=== PATIENT | male | born 1945 | race Hispanic/Latino ===

== ENCOUNTER 2016-12-26 12:09 | Observation (INO) | payer MEDICARE, BC ==
[2016-12-26 12:22] VITALS: BMI 42.5
--- NOTE | 2016-12-26 12:54 | ED PDOC ---
Arrival/HPI - General Chief Complaint: Chest Pain Time Seen by Provider: 12/26/16 12:19 Historian: Patient - History of Present Illness Narrative History of Present Illness (Text): 12/26/16 12:25 A 71 year old male, whose past medical history includes Atrial fibrillation (on Coumadin) and hypertension, presents to the emergency department complaining of chest pain. Patient reports he was at work prior to arrival, when he started to feel dizzy and nausea. Dizziness was followed by chest pressure which radiated down the left arm. Patient took 2 baby aspirin and call EMS. Patient then took a regular aspirin. Once EMS arrival they have him Nitroglycerin. Patient states currently he no longer has chest pain or dizziness. Patient denies any weakness , numbness, vision changes, change in speech or any other complaints at this time. PMD: Dr. Alexandre Computer Science Intern: Dr. Nicholas Time/Duration: Prior to Arrival Symptom Onset: Sudden Symptom Course: Resolved Quality: Pressure Activities at Onset: Rest Modifying Factors (Text): resolution of symptoms after medication Context: Work Past Medical History - Provider Review Nursing Documentation Reviewed: Yes - Tetanus Immunization Tetanus Immunization: Unknown - Cardiac Hx Cardiac Disorders: Yes Hx Cardiac Arrhythmia: Yes (Afib) Hx Hypertension: Yes - Pulmonary Hx Respiratory Disorders: No - Neurological Hx Neurological Disorder: No - HEENT Hx HEENT Disorder: No - Renal Hx Renal Disorder: No - Endocrine/Metabolic Hx Endocrine Disorders: No - Hematological/Oncological Hx Blood Disorders: No - Integumentary Hx Dermatological Disorder: No - Musculoskeletal/Rheumatological Hx Musculoskeletal Disorders: No - Gastrointestinal Hx Gastrointestinal Disorders: No - Genitourinary/Gynecological Hx Genitourinary Disorders: No - Psychiatric Hx Psychophysiologic Disorder: No Hx Depression: No Hx Emotional Abuse: No Hx Physical Abuse: No Hx Substance Use: No - Surgical History Hx Appendectomy: Yes (?) - Suicidal Assessment Feels Threatened In Home Enviroment: No Family/Social History - Physician Review Nursing Documentation Reviewed: Yes Family/Social History: Unknown Family HX Smoking Status: Never Smoked Hx Alcohol Use: No Hx Substance Use: No Hx Substance Use Treatment: No Allergies/Home Meds Allergies/Adverse Reactions: Allergies No Known Allergies Allergy (Verified 12/26/16 12:20) Home Medications: Home Meds Medication Instructions Recorded Confirmed Atenolol [Tenormin] 200 mg PO DAILY 03/19/13 12/26/16 Tamsulosin [Flomax] 0.4 mg PO DAILY 12/28/14 12/26/16 Allopurinol [Zyloprim] 100 mg PO DAILY 12/26/16 12/26/16 Aspirin [Aspirin Chewable] 81 mg PO DAILY 12/26/16 12/26/16 Fosinopril Sodium [Fosinopril 10 mg PO DAILY 12/26/16 12/26/16 Sodium] Gemfibrozil [Lopid] 600 mg PO DAILY 12/26/16 12/26/16 Naproxen [Naprosyn] 1 tab PO PRN PRN 12/26/16 12/26/16 Nizatidine [Nizatidine] 150 mg PO DAILY 12/26/16 12/26/16 Potassium Chloride [K-Dur 20 mEq 20 meq PO DAILY 12/26/16 12/26/16 ER Tab] Triamterene [Dyrenium] 25 mg PO DAILY 12/26/16 12/26/16 Warfarin [Coumadin] 4 mg PO DAILY 12/26/16 12/26/16 Review of Systems - Physician Review All systems were reviewed & negative as marked: Yes - Review of Systems Constitutional: absent: Fevers Eyes: absent: Vision Changes Respiratory: absent: SOB Cardiovascular: Chest Pain Gastrointestinal: Nausea Neurological: Dizziness. absent: Focal Weakness, Speech Changes Physical Exam Vital Signs Reviewed: Yes Vital Signs Temp Pulse Resp BP Pulse Ox 12/26/16 14:02 85 18 118/62 100 12/26/16 13:56 69 18 126/79 100 12/26/16 12:21 98.0 F 76 18 128/89 100 Temperature: Afebrile Blood Pressure: Normal Pulse: Irregular Respiratory Rate: Normal Appearance: Positive for: Well-Appearing, Non-Toxic, Comfortable Pain Distress: None Mental Status: Positive for: Alert and Oriented X 3 Finger Stick Blood Glucose: 99 - Systems Exam Head: Present: Atraumatic, Normocephalic Pupils: Present: PERRL Extroacular Muscles: Present: EOMI Conjunctiva: Present: Normal Mouth: Present: Moist Mucous Membranes Neck: Present: Normal Range of Motion Respiratory/Chest: Present: Clear to Auscultation, Good Air Exchange. No: Respiratory Distress, Accessory Muscle Use Cardiovascular: Present: Normal S1, S2, Irregular Rhythm. No: Murmurs Abdomen: Present: Normal Bowel Sounds. No: Tenderness, Distention, Peritoneal Signs Back: Present: Normal Inspection Upper Extremity: Present: Normal Inspection. No: Cyanosis, Edema Lower Extremity: Present: Normal Inspection. No: Edema Neurological: Present: GCS=15, CN II-XII Intact, Speech Normal, Motor Func Grossly Intact, Normal Sensory Function, Normal Cerebellar Funct, Gait Normal, Memory Normal, Normal 2Pt Descrimination Skin: Present: Warm, Dry, Normal Color. No: Rashes Psychiatric: Present: Alert, Oriented x 3, Normal Insight, Normal Concentration Medical Decision Making ED Course and Treatment: 12/26/16 12:25 Impression: A 71 year old male with chest pressure, dizziness and nausea. Differential Diagnosis include but are not limited to: Chest pain r/o ACS; Dizziness r/o intracranial abnormalities Plan: -- EKG -- Head CT -- Chest X-ray -- Labs -- Urinalysis -- Reassess and disposition Prior Visits: Notes and results from previous visits were reviewed. The patient last presented to the emergency department on 12/28/14 for evaluation after a mechanical fall. - Lab Interpretations Lab Results: 12/26/16 12:50 12/26/16 12:50 Lab Results 12/26/16 12:50: WBC 9.4 D, RBC 4.90, Hgb 15.1, Hct 43.6, MCV 89.0, MCH 30.8, MCHC 34.6, RDW 15.7 H, Plt Count 182, MPV 10.1, Gran % 69.5 H, Lymph % (Auto) 14.7 L, [place] % (Auto) 11.8 H, Eos % (Auto) 3.6, Baso % (Auto) 0.4, Gran # 6.52 H , Lymph # 1.4, [place] # 1.1 H, Eos # 0.3, Baso # 0.04, PT 38.7 H*, INR 3.58 H*, APTT 55.2 H, Sodium 142, Potassium 3.9, Chloride 103, Carbon Dioxide 24, Anion Gap 19, BUN 26 H, Creatinine 1.4, Est GFR ( Amer) > 60, Est GFR (Non-Af Amer) 50, Random Glucose 107, Calcium 10.5, Magnesium 1.7, Total Bilirubin 1.1, AST 43, ALT 34, Alkaline Phosphatase 162 H, Lactate Dehydrogenase 434, Total Creatine Kinase 54, Troponin I < 0.01, Total Protein 8.4 H, Albumin 4.2, Globulin 4.2, Albumin/Globulin Ratio 1.0 L 12/26/16 12:39: POC Glucose (mg/dL) 99 I have reviewed the lab results: Yes - RAD Interpretation Radiology Orders: 12/26/16 12:30 HEAD W/O CONTRAST [CT] Stat CHEST PORTABLE [RAD] Stat - Medication Orders Current Medication Orders: Non-Formulary Medication (Atenolol [Tenormin]) 200 mg PO DAILY ALAN Discontinued Medications Non-Formulary Medication (Fosinopril Sodium [Fosinopril Sodium]) 10 mg PO DAILY ALAN Non-Formulary Medication (Warfarin [Coumadin]) 4 mg PO DAILY ALAN ED OBSERVATION Date of observation admission: 12/26/16 Time of observation admission: 12:30 - Observation admission statement Patient is being placed in observation because:: chest pain - Goals of Observation Goals of observation are:: consultation with mold laminator and obtain 2 sets of Troponin - Progress Note Progress Note: EKG: Ordered, reviewed, and independently interpreted the EKG. Rate : 76 BPM Rhythm : Atrial Fibrillation Interpretation : No ST-segment elevations 12/26/16 12:30 The patient states he does not which to be admitted to the hospital for observation. Patient states he prefer to wait for her cardiology's and perform two sets of cardiac enzymes. 12/26/16 13:[address] Baldomero GOLDMAN who is aware patient is here and said to call her back when results are back. Dr. Chen mold laminator was called and he also said to call him when results are back. Patient and are aware that their physicians were called. 12/26/16 13:[address]: Creator : Bogdan Rojas MD COMPARISON: 12/29/2019 FINDINGS: HEMORRHAGE: No intracranial hemorrhage. BRAIN: No mass effect or edema. Mild diffuse age-appropriate cerebral atrophy. VENTRICLES: Unremarkable. No hydrocephalus. CALVARIUM: Unremarkable. PARANASAL SINUSES: Unremarkable as visualized. No significant inflammatory changes. MASTOID AIR CELLS: Unremarkable as visualized. No inflammatory changes. OTHER FINDINGS: None. IMPRESSION: No intracranial hemorrhage. No intracranial mass or evidence of acute infarct. Age-appropriate atrophy. 12/26/16 15:02 I discussed case again with Dr. Chen who states he will come and see him. I discussed case with Dr. Alexandre while she was here seeing patient. After his discussion with Dr. Alexandre patient agreed to stay in the hospital. She states patients has had some elevated alk phos before and would like Abd CT PO only study and Abd sono for evaluation of his abdomen. She wanted Dr. Miller consulted. Patient does not have any abdominal pain. I discussed plan with patient and his and they agree to stay and for the additional radiology studies. Patient has not had chest pain again during ED stay. - Scribe Statement The provider has reviewed the documentation as recorded by the Auroraibe Mukesh Colón Provider Scribe Attestation: All medical record entries made by the Scribe were at my direction and personally dictated by me. I have reviewed the chart and agree that the record accurately reflects my personal performance of the history, physical exam, medical decision making, and the department course for this patient. I have also personally directed, reviewed, and agree with the discharge instructions and disposition. Disposition/Present on Arrival - Present on Arrival Any Indicators Present on Arrival: No History of DVT/PE: No History of Uncontrolled Diabetes: No Urinary Catheter: No History of Decub. Ulcer: No History Surgical Site Infection Following: None - Disposition Have Diagnosis and Disposition been Completed?: Yes Diagnosis: Chest pain Disposition: HOSPITALIZED Disposition Time: 15:05 Patient Plan: Observation Patient Problems: Current Active Problems Problem Status Diagnosed Chest pain Acute Condition: FAIR
[2016-12-26 12:57] LABS: ADD MANUAL DIFF? NO
[2016-12-26 13:01] LABS: BASO # 0.04 K/mm3 (0.0-2.0); BASO % 0.4 % (0.0-3.0); EOS # 0.3 (0.0-0.7); EOS % 3.6 % (1.5-5.0); GRAN # 6.52 (1.4-6.5); GRAN % 69.5 % (50.0-68.0); HEMATOCRIT 43.6 % (42.0-52.0); LYMPH # 1.4 (1.2-3.4); LYMPH % 14.7 % (22.0-35.0); MEAN CORPUSCULAR HEMOGLOBIN 30.8 pg (25.0-35.0); MEAN CORPUSCULAR HGB CONC 34.6 g/dl (31.0-37.0); MEAN PLATELET VOLUME 10.1 fl (7.0-11.0); MONO # 1.1 (0.1-0.6); MONO % 11.8 % (1.0-6.0); PLATELET COUNT 182 10^3/uL (120.0-450.0); RED CELL DISTRIBUTION WIDTH 15.7 % (11.5-14.5); WHITE BLOOD COUNT 9.4 10^3/ul (4.5-11.0)
[2016-12-26 13:14] LABS: PARTIAL THROMBOPLASTIN TIME 55.2 Seconds (23.7-30.8)
[2016-12-26 13:23] LABS: ALKALINE PHOSPHATASE 162 U/L (38-133); ALT/SGPT 34 U/L (7-56); AST/SGOT 43 U/L (15-59); BILIRUBIN,TOTAL 1.1 mg/dL (0.2-1.3); BLOOD UREA NITROGEN 26 mg/dL (7-21); CALCIUM 10.5 mg/dL (8.4-10.5); CARBON DIOXIDE 24 mmol/L (21-33); CHLORIDE 103 mmol/L (98-107); GFR AFRICAN-AMERICAN > 60; GLUCOSE,RANDOM 107 mg/dL (70-110); MAGNESIUM 1.7 mg/dL (1.7-2.2); POTASSIUM 3.9 mmol/L (3.6-5.0); SODIUM 142 mmol/L (132-148); TOTAL PROTEIN 8.4 g/dL (5.8-8.3)
[2016-12-26 13:29] LABS: INR 3.58 (0.93-1.08)
[2016-12-26 13:37] LABS: TROPONIN I < 0.01 ng/mL
--- NOTE | 2016-12-26 13:42 | CT ---
PROCEDURE: CT HEAD WITHOUT CONTRAST. HISTORY: dizzines, coumadin r/o ich COMPARISON: 12/29/2019 TECHNIQUE: Axial computed tomography images were obtained through the head/brain without intravenous contrast. Radiation dose: Total exam DLP = 774.23 mGy-cm. This CT exam was performed using one or more of the following dose reduction techniques: Automated exposure control, adjustment of the mA and/or kV according to patient size, and/or use of iterative reconstruction technique. FINDINGS: HEMORRHAGE: No intracranial hemorrhage. BRAIN: No mass effect or edema. Mild diffuse age-appropriate cerebral atrophy. VENTRICLES: Unremarkable. No hydrocephalus. CALVARIUM: Unremarkable. PARANASAL SINUSES: Unremarkable as visualized. No significant inflammatory changes. MASTOID AIR CELLS: Unremarkable as visualized. No inflammatory changes. OTHER FINDINGS: None. IMPRESSION: No intracranial hemorrhage. No intracranial mass or evidence of acute infarct. Age-appropriate atrophy.
--- NOTE | 2016-12-26 15:02 | RAD ---
HISTORY: chest pain COMPARISON: No prior. FINDINGS: LUNGS: No active pulmonary disease. PLEURA: No significant pleural effusion identified, no pneumothorax apparent. CARDIOVASCULAR: Normal. OSSEOUS STRUCTURES: No significant abnormalities. VISUALIZED UPPER ABDOMEN: Normal. OTHER FINDINGS: None. IMPRESSION: No active disease.
[2016-12-26] MEDS ORDERED: Iohexol 240 (50 ml) ONE (15:03)
[2016-12-26] MEDS ORDERED: NAPROXEN PO PRN (15:10)
[2016-12-26] MEDS ORDERED: Potassium Chloride 20 mEq ER Tab PO SCH (15:15)
[2016-12-26] MEDS ORDERED: TRIAMTERENE 25 MG PO SCH (15:15)
[2016-12-26] MEDS ORDERED: ATENOLOL 200 MG PO SCH (15:15)
[2016-12-26] MEDS ORDERED: FOSINOPRIL SODIUM 10 MG PO SCH (15:15)
[2016-12-26] MEDS ORDERED: NIZATIDINE 150 MG PO SCH (15:15)
--- NOTE | 2016-12-26 17:40 | CT ---
PROCEDURE: CT Abdomen and Pelvis without intravenous contrast HISTORY: abd pain COMPARISON: None. TECHNIQUE: Without contrast.. Contrast Dose: Radiation dose: Total exam DLP = 1343 mGy-cm. This CT exam was performed using one or more of the following dose reduction techniques: Automated exposure control, adjustment of the mA and/or kV according to patient size, and/or use of iterative reconstruction technique. FINDINGS: LOWER THORAX: Unremarkable. LIVER: Unremarkable. No gross lesion or ductal dilatation. GALLBLADDER AND BILE DUCTS: Several small stones are seen in the gallbladder. There is no inflammation PANCREAS: Unremarkable. No gross lesion or ductal dilatation. SPLEEN: Unremarkable. ADRENALS: Unremarkable. No mass. KIDNEYS AND URETERS: Unremarkable. No hydronephrosis. No solid mass. VASCULATURE: Unremarkable. No aortic aneurysm. BOWEL: Unremarkable. No obstruction. No gross mural thickening. APPENDIX: Unremarkable. Normal appendix. PERITONEUM: Unremarkable. No free fluid. No free air. LYMPH NODES: Unremarkable. No enlarged lymph nodes. BLADDER: Unremarkable. REPRODUCTIVE: Unremarkable. BONES: Multilevel disc degeneration OTHER FINDINGS: None. IMPRESSION: Gallstones. No acute findings
--- NOTE | 2016-12-26 17:46 | CARD ---
APPROVED REPORT EKG Measurement Heart [id number] <Conclusion> Atrial fibrillation Abnormal ECG
[2016-12-26 18:43] LABS: URINE BILIRUBIN NEGATIVE (NEGATIVE); URINE BLOOD TRACE-INTACT (NEGATIVE); URINE GLUCOSE (UA) NEGATIVE (NEGATIVE); URINE KETONE NEGATIVE (NEGATIVE); URINE LEUKOCYTE ESTERASE NEGATIVE Leu/uL (NEGATIVE); URINE PROTEIN 100 mg/dL (<30 mg/dL); URINE UROBILINOGEN 0.2 E.U./dL (<1 E.U./dL)
[2016-12-26 18:44] LABS: URINE APPEARANCE SL CLOUDY (CLEAR); URINE COLOR YELLOW (YELLOW)
[2016-12-26 18:49] LABS: URINE WBC NEGATIVE /hpf (0-6)
[2016-12-26] MEDS ORDERED: Pneumococcal 23-Valent Vaccine IM ONE (19:43)
--- NOTE | 2016-12-26 19:47 | CON ---
DATE: 12/26/2016 REQUESTING PHYSICIAN: Dr. Alexandre. REASON FOR CONSULTATION: Chest pain and dizziness. HISTORY: This is a 71-year-old man well known to me, with a history of chronic atrial fibrillation, hypertension, and aortic stenosis, who was at work earlier today when he became somewhat dizzy and li ght-headed. He denies any loss of consciousness. He was unaware of any palpitations. He also had l eft-sided and left shoulder discomfort which he describes as a mild pressure. 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. His blood pressure was repor tedly normal. His symptoms persisted, and the emergency squad was called. Upon arrival, he was given a sublingual nitroglycerin spray which he feels may or may not have had mu ch improvement in his symptoms. Upon arrival, his electrocardiogram showed no acute changes, and a C T of the head was unremarkable except for age-related atrophy. He is currently pain free. His last stress test was in 2009, which appeared normal, with a normal ejection fraction. He had und ergone cardiac catheterization back in 1993, which was normal at that time. His last echocardiogram was performed in June and was unchanged from prior studies. It was a limited study, but showing e vidence of normal LV systolic function with [id number] aortic stenosis. The peak gradient was 25 mmHg, with a mean gradient 22 mmHg. His past history is notable for the problems mentioned above. He has a history of hyperlipidemia, as well as severe knee arthritis. He does have long-standing obesity. He suffered a fall in 2014 with a resultant nasal fracture. He has had previous surgery for volvulus. He also has a history of gou t. CURRENT MEDICATIONS: Include Axid 150 mg daily, Flomax 0.4 mg daily, Catapres TTS 2 patches weekly, Monopril 10 mg daily, atenolol 100 mg b.i.d., Dyazide once daily, Tricor 67 mg daily, allopurinol 100 mg b.i.d., lorazepam p.r.n., K-Dur 20 mEq b.i.d., and Coumadin. ALLERGIES: None. SOCIAL HISTORY: He is , lives with his . 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 FAMILY HISTORY: Father at the age of 93. Mother at the age of 74 from cancer. Both mater nal grandparents past away in their 50s from coronary disease. One sister had bypass surgery in her 70s. SOCIAL HISTORY: Does not smoke or drink. A 10-point review of systems is notable mainly for the problems mentioned above. His knee arthritis is severe and limiting, and he has been considering knee replacement surgery somewhere in the near [facility]. On physical examination he is an overweight, middle-aged man. His blood pressure is 118/62, with a pulse of 78 and regular, respirations are 14. He is afebrile. HENT: Normocephalic, atraumatic. Pupils equal to light and accommodation. NECK: Supple. No JVD is noted. Carotid upstrokes are diminished and delayed. CHEST: Clear to auscultation and percussion. HEART: PMI displaced laterally. Heart tones are somewhat distant. A mid-peaking systolic murmur is noted at the base. ABDOMEN: Soft, obese, nontender, normoactive bowel sounds. EXTREMITIES: Reveal trace ankle edema. SKIN: Warm and dry. PSYCHIATRIC: Normal mood and affect. NEUROLOGIC: Alert and oriented x 3. No gross motor or sensory deficits appreciable. DIAGNOSTIC DATA: Electrocardiogram reveals atrial fibrillation with controlled ventricular response, leftward axis, nonspecific ST-T abnormalities. Chest x-ray reveals normal cardiac silhouette with c lear lung [place]. CT of the head is, as mentioned, unremarkable. Potassium 3.9, BUN and creatinine are 26 and 1.4, white count 9.4, hemoglobin and hematocrit 15.1 and 43.6, with a platelet count of 182,000. INR is 3.58. Initial troponin is negative. IMPRESSION: 1. Dizziness, etiology unclear. 2. Chest pain suspicious for cardiac ischemia given age risk factors and characteristics, however, ot her causes may certainly be playing a role. He states he has had some intense stress lately as well. 3. Chronic atrial fibrillation with controlled rate. 4. Aortic stenosis, [id number] at present. Doubt this is playing a role in his current symptom atology. 5. Rest of problems as noted. RECOMMENDATIONS: Serial enzymes will be obtained. A repeat electrocardiogram will be performed in t he morning. If he does have significant elevation of his cardiac enzymes, urgent catheterization daisha l be planned. Coumadin would need to be reversed in that situation. If his cardiac enzymes proved t o be negative, discharge home tomorrow with outpatient stress test would be reasonable. He is planning a trip with his family in approximately 10 days to [place], and would like to proceed with that, if possible. In the interim, his Coumadin will be withheld today, and repeat INR planned for the morning. Clonidine p.r.n. will be administered, as apparently, Catapres patches are currentl y not available in the hospital. Thank you for this consultation. I am happy to follow along through his hospital course and make fur ther recommendations as appropriate. Fer Nicholas MD cc: [id number] TT: 12/26/2016 19:46:03 Confirmation # [id number] Dictation # [id number] lorenzo
--- NOTE | 2016-12-26 20:17 | HP ---
HISTORY OF PRESENT ILLNESS: This 71-year-old male was admitted to [facility] with substernal chest pain. He went to his job earlier this morning upon arrival, experienced substernal chest discomfort as well as mild nausea and dizziness. He sat at his desk, took 2 aspirin, called for the school nurse who examined the patient and called EMS. They did an EKG which she reports was unremarkable and gave him sublingual nitro and he stated that the chest discomfort lasted approximately 1 hour. He denied diaphoresis, jaw pain, neck pain, but stated that the chest discomfort did radiate to and down his left arm. He denied any vomiting. PAST MEDICAL HISTORY: Extensive and includes chronic hypertension, chronic atrial fibrillation on chronic Coumadin therapy, obesity, severe degenerative arthritis of his knees, gout, hyperlipidemia, peptic ulcer disease, benign prostate hypertrophy, anxiety neurosis. OUTPATIENT MEDICATIONS: Includes Catapres TTS 3 patch 1 to each arm weekly, Axid 150 mg p.o. daily, Naprosyn 500 mg p.o. daily p.r.n. severe degenerative arthritic pain, Flomax 0.4 mg p.o. daily, baby aspirin 81 mg daily, Coumadin 4 mg p.o. daily, allopurinol 100 mg p.o. daily, Dyazide 25 mg p.o. daily, potassium chloride 20 mEq p.o. daily, Monopril 10 mg p.o. daily, atenolol 100 mg p.o. bid daily and Lopid 600 mg p.o. daily. ALLERGIES: The patient denies any allergies to medication. SOCIAL HISTORY: He is a nondrinker, nonsmoker, non-IV drug misuser. FAMILY HISTORY: Noncontributory. REVIEW OF SYSTEMS: HEAD: Admitted to dizziness, now resolved. EYES: Denied any change in visual acuity. EARS: Denied hearing loss. THROAT: Denied swallowing difficulty. NECK: Has chronic arthritis of the cervical spine. CARDIOVASCULAR: Admitted to substernal chest pain, chronic hypertension, chronic atrial fibrillation for which he takes Coumadin and atenolol. PULMONARY: Denied cough or hemoptysis. GASTROINTESTINAL: Denied any hematemesis or melena. GENITOURINARY: Benign prostate hypertrophy. SKIN: Without rash. VASCULAR: No claudication. PSYCHOLOGICAL: Anxiety. NEUROLOGIC: No knowledge of stroke. ENDOCRINE: Hyperlipidemia. PHYSICAL EXAMINATION: VITAL SIGNS: Atrial fibrillation on the registered nurse cardiac telemetry.Temperature 98, respirations 18, pulse 85, blood pressure 118/62 with a pulse ox of 100% on room air. HEENT: Normocephalic, atraumatic. Eyes: No icterus. NECK: Supple. HEART: Irregular S1, S2. No pathological rubs, murmurs, or gallops. LUNGS: Clear. ABDOMEN: Obese, nontender, no palpable organomegaly, no rebound, no guarding, no tenderness. EXTREMITIES: No clubbing, no cyanosis, no edema. SKIN: Without rash. NEUROLOGICAL: Intact. PSYCHOLOGICAL: Alert. VASCULAR: Legs warm to touch. LABORATORY DATA: Sodium 142, K 3.9, chloride 103, bicarbonate 24, BUN 26, creatinine 1.4. Random blood sugar 99, calcium normal at 10.5, magnesium normal at 1.7, bilirubin normal at 1.1, AST normal 43, ALT normal 34, alkaline phosphatase elevated at 162, normal is 133 or less. CPK normal 54, troponin normal less than 0.01. PT INR elevated at 3.58, white count 9400, hemoglobin 15.1, hematocrit 43.6, platelets 182,000. IMAGING: Head CT: No evidence of intracranial hemorrhage. Chest x-ray: No active disease. EKG: Atrial fibrillation. Heart rate 76. Abdominopelvic CT showed gallstones, no acute findings. Kidneys unremarkable, no hydronephrosis, no solid mass. Adrenals unremarkable, no mass. Pancreas, no gross lesion or ductal dilatation. Liver unremarkable and gallbladder with several small stones seen in the gallbladder with no evidence of inflammation. IMPRESSION: A 71-year-old male with obesity, chest pain, rule out myocardial infarction, rule out atypical chest pain secondary to gastrointestinal pathology with elevated alkaline phosphatase and comorbities as listed above. PLAN: To consult Dr. Fer Nicholas from cardiology, Dr. Kevin Miller from GI. The patient is ordered to have heart healthy diet. He will have an abdominal ultrasound. I will order a bone scan. He will have his Coumadin withheld and a repeat INR in the a.m. He will have cardiac isoenzymes q. 8 x 2 and I will order a urinalysis, a 24-hour urine for protein and creatinine clearance and urine for eosinophils for completeness sake as well as a serum and urine immunoelectrophoresis. I will also order a vitamin D 25 hydroxy level and await the opinions of cardiology and GI. All of the above was discussed in detail with the patient at his bedside. He will be admitted to the cardiac unit and further workup will be entertained based on the results of the above. Greater than 50 minutes was spent in the care, coordination of care , discussion of care and ordering a workup for this patient today. Mami Alexandre MD cc: [id number] TT: 12/26/2016 20:16:23 dn MTDD
[2016-12-26 21:16] LABS: TROPONIN I < 0.01 ng/mL
[2016-12-27 03:09] LABS: TROPONIN I < 0.01 ng/mL
[2016-12-27 06:28] VITALS: RESP 20; O2SAT 97
--- NOTE | 2016-12-27 08:18 | US ---
HISTORY: abd pain COMPARISON: CT of the abdomen and pelvis with oral contrast performed 12/26/16 TECHNIQUE: Sonographic evaluation of the abdomen. FINDINGS: Examination limited by habitus and bowel gas. LIVER: Measures 17.9 cm in sagittal dimension. Echogenic liver may be seen in setting of hepatic parenchymal disease or fatty infiltration. No focal hepatic mass identified. The main portal vein appears patent with normal directional flow. No intrahepatic bile duct dilatation. GALLBLADDER: Gallstones. Gallbladder sludge. No gallbladder wall thickening. Negative sonographic Cardoso's sign as assessed by the farm mechanic apprentice. COMMON BILE DUCT: Measures 6 mm. PANCREAS: Not well visualized. RIGHT KIDNEY: Measures 11.6 x 5.6 x 6.3cm. No obstructing calculus or hydronephrosis identified. LEFT KIDNEY: Measures 12.3 x 5.6 x 6.6cm. No obstructing calculus or hydronephrosis identified. Upper/mid pole renal cyst measures approximately 1.5 x 1.1 x 1.7 cm. SPLEEN: Measures approximately 11.8 x 4.3 x 4.3 cm. AORTA: Limited views appear unremarkable. IVC: Limited views appear unremarkable. OTHER FINDINGS: None. IMPRESSION: Examination limited by habitus and bowel gas. Cholelithiasis. Gallbladder sludge. No evidence of gallbladder wall thickening. Negative sonographic Cardoso's sign as assessed by the farm mechanic apprentice. Echogenic liver may be seen in setting of hepatic parenchymal disease or fatty infiltration. 1.7 cm left upper/mid pole renal cyst.
[2016-12-27 09:32] LABS: INR 3.65 (0.93-1.08)
--- NOTE | 2016-12-27 09:36 | CP.PCM.PN ---
Subjective - Date & Time of Evaluation Date of Evaluation: 12/27/16 Time of Evaluation: 08:00 - Subjective Subjective: Stable on 2R. He feels well this AM. No dizziness, CP or SOB. V/S noted. AF PE: Lungs: clear Cor.: irreg., S1S2, GRZEGORZ Abd.: obese Ext.: no edema Neuro.: alert ECG: AF, No change Labs noted: trops neg x 3. Today's INR pending. Objective - Vital Signs/Intake and Output Vital Signs (last 24 hours): Temp Pulse Resp BP Pulse Ox 98.9 F 80 20 125/75 97 12/27/16 06:00 12/27/16 08:51 12/27/16 06:00 12/27/16 08:51 12/27/16 06:00 Intake and Output: 12/27/16 12/27/16 06:59 18:59 Output Total 950 Balance -950 - Medications Medications: Current Medications Aspirin (Aspirin Chewable) 81 mg PO DAILY [facility] Atenolol (Tenormin) 100 mg PO BID [facility] Last Admin: 12/27/16 08:51 Dose: 100 mg Clonidine HCl (Catapres-Tts3 0.3 Mg/24 Hr) 2 patch TD Th@1000 ALAN Tamsulosin HCl (Flomax) 0.4 mg PO HS [facility] Last Admin: 12/26/16 22:06 Dose: 0.4 mg - Labs Labs: PT 38.7 Seconds (9.9-11.8) H* 12/26/16 12:50 INR 3.58 (0.93-1.08) H* 12/26/16 12:50 APTT 55.2 Seconds (23.7-30.8) H 12/26/16 12:50 Assessment and Plan - Assessment and Plan (Free Text) Plan: Assessment: Dizzy spell/Lightheadedness-resolved Atypical CP-resolved H/O normal cor angios, remote HLD DJD Obesity Gout Plan: OOB ad [place], If no further CP>put-pt nuclear stress test early next week. Check AM INR when available. Pt. will call if sxs. recur
[2016-12-27] MEDS ORDERED: TRIAMTERENE 25 MG PO SCH (10:00)
[2016-12-27] MEDS ORDERED: ATENOLOL 200 MG PO SCH (10:00)
[2016-12-27] MEDS ORDERED: NIZATIDINE 150 MG PO SCH (10:00)
--- NOTE | 2016-12-27 12:37 | DS ---
FINAL DIAGNOSES: Chest pain, resolved; chronic hypertension, obesity, gallstones, biliary sludge, benign prostate hypertrophy, degenerative arthritis. DISPOSITION: Home. FOLLOWUP: With Dr. Nicholas in his office in 72 hours, cardiology. Follow up with Dr. Miller, GI regarding gallstones, gallbladder sludge and elevated alk phos level. Follow up with my office Friday for repeat PT/INR level. DISCHARGE DIET: 2 g sodium soft bland. DISCHARGE MEDICATIONS: Baby aspirin 81 mg p.o. daily, Flomax 0.4 mg p.o. at bedtime, atenolol 100 mg p.o. b.i.d., Catapres TTS 3 patch 1 to each arm weekly. The patient will resume Coumadin after additional blood testing at the office next week. Also will take Monopril 10 mg p.o. daily, Lopid 600 mg p.o. daily. SUMMARY: This 71-year-old male was admitted to the [facility] for evaluation of substernal chest pressure that occurred while at work the day prior. He was seen in consultation by Dr. Nicholas who ordered serial cardiac isoenzymes, all of which were negative for acute MT. He was cleared by Dr. Solorzano, cardiology, for discharge to home for a followup outpatient stress test in his office early next week. He was seen in consultation by Dr. Miller for concerns of atypical chest pain and elevated alk phos level for which he ordered a GGTP level which is pending at the present time. He states that he will coordinate the timing and bridging of his Coumadin with possible Lovenox with Dr. Nicholas for outpatient endoscopy and colonoscopy when patient is stable. The patient also is scheduled to have a bone scan at the time of this dictation prior to discharge for completeness sake because of elevated alk phos level and because of a urinalysis that showed proteinuria, he is undergoing a serological workup and will complete a 24-hour urine at my office as well. At the time of this dictation, the patient is in a chronic atrial fibrillation rhythm on the monitor, temperature 98.9, respirations 20, pulse 82, and blood pressure 120/80 with a pulse ox of 97%. Labs show white count 9400, hemoglobin 15.1, hematocrit 43.6, platelets 182,000. PT/INR 3.65. Coumadin is on hold. Sodium 142, K 3.9, chloride 103, bicarb 24, BUN 26, creatinine 1.4, random blood sugar was 99, magnesium level normal at 1.7, bilirubin 1.1, AST 43, ALT 34 , alk phos 162. Troponin was less than 0.01 x 4. Urinalysis showed 100 mg/ deciliter of protein and abdominal pelvic CT showed no gross lesions of the liver, small stones in the gallbladder, unremarkable pancreas unremarkable kidneys. The impression was gallstones, no acute findings by Dr. Murray Saeed from radiology an. Abdominal ultrasound confirmed fatty liver, gallstones and gallbladder sludge. He was also noted to have a 1.7 cm left upper renal cyst. There was no evidence of cholecystitis. All of these reports were reviewed with Dr. Miller who was in agreement with the patient's desire to be discharged today and the patient and his at the bedside are aware of their need to follow up with Dr. Miller from GI, Dr. Nicholas from cardiology and my office as outlined. The patient has been advised for any change in signs and symptoms to represent to the [facility] for further evaluation of the above. I had a lengthy discussion with the patient regarding my concerns regarding his continued use of antacids and nonsteroidal anti- inflammatory agents and their possible contribution to his probable non- nephrotic range proteinuria. I have recommended to the patient that he will need to be serious in his commitment to follow up with rheumatology regarding alternative therapies for his severe degenerative arthritis and with Dr. Miller regarding his peptic ulcer disease as well. Hopefully, he will be compliant with the above recommendations. Greater than 50 minutes was spent in the care, coordination of care, discussion of care, and review of care with the patient, his and nursing staff and co- consultants today. Mami Alexandre MD cc: [id number] TT: 12/27/2016 12:37:21 tn MTDD
[2016-12-27 13:22] VITALS: PULSE 81
[2016-12-27 13:27] VITALS: BP 128/87; TEMP 98.3
--- NOTE | 2016-12-27 15:04 | CON ---
DATE: 12/27/2016 Seen and examined at the bedside earlier today. The chart was reviewed. REQUEST FOR CONSULT: For evaluation of increased alkaline phosphatase. HISTORY OF PRESENT ILLNESS: This is a 71-year-old male with a past medical history of chronic atrial fibrillation on Coumadin, degenerative arthritis of the knees, hypertension, peptic ulcer disease, c lakshmi to the Emergency Room with complaints of chest pain. The patient complained of some nausea and d izziness as well. He took 2 aspirins. The school nurse was called and EMS was called. EKG was done which was unremarkable. He was given sublingual nitro. The patient denies any symptoms of vomiting , no jaw pain or neck pain. The patient on admission was found to have elevated alkaline phosphatase . He did have an abdominal ultrasound done and a CT scan done on admission which were reviewed. The patient does report he has history of gallstones. Denies any current symptoms of nausea, vomiting o r any abdominal discomfort. The patient denies ever having endoscopy. He did have a colonoscopy abo ms 4-5 years ago and denies any history of polyps. PAST MEDICAL HISTORY: As stated above, atrial fibrillation on Coumadin, obesity, hypertension, gout, hyperlipidemia, BPH, anxiety, peptic ulcer disease. FAMILY HISTORY: Noncontributory at this time. SOCIAL HISTORY: Denies tobacco use, ETOH or substance abuse. MEDICATIONS: Reviewed as per MAR. Significant for Coumadin. He takes baby aspirin, is on Naprosyn p.r.n., takes Axid. ALLERGIES: No known drug allergies. REVIEW OF SYSTEMS: Systems were reviewed with positive findings, see HPI. VITAL SIGNS: Temperature is 98.9, blood pressure is 125/75, his pulse is 80, respirations 20, 97 O2 saturation. LABORATORY DATA: On 12/26, his sodium is 142, K is 3.9, BUN 26, creatinine is 1.4, total bilirubin is 1.1, AST 43, ALT 34, alkaline phosphatase is 162, vitamin D is 25.5, GGT is 27. WBC is 9.4, H and H is 15.1, hematocrit is 43.6, platelet count is 182. PT is 39.4, INR is 3.65. RADIOLOGY: The patient had a CT scan of the head which was negative for any intracranial hemorrhage. No intracranial mass or evidence of acute infarct; age-appropriate atrophy. Chest x-ray was done, no active disease. Abdominal ultrasound: Gallbladder with gallstones, has gallbladder sludge, no ga llbladder wall thickening. Negative sonographic Cardoso's sign. No evidence of gallbladder wall thic kening, echogenic liver may be seen in the setting of hepatic parenchymal disease or fatty infiltrati on. There is a 1.7 cm left upper mid pole renal cyst. CT scan of abdomen and pelvis with oral contr ast shows gallstones, no acute findings. The bowel was unremarkable, no obstruction, no gross mural thickening. PHYSICAL EXAMINATION: HEENT: Sclerae are anicteric. NECK: Supple. CARDIAC: S1, S2. LUNGS: Sounds are clear. ABDOMEN: With bowel sounds, soft, nontender on palpation. No rebound, guarding, or organomegaly. EXTREMITIES: Positive pedal pulses, no edema. NEUROLOGIC: Awake, alert, and oriented. ASSESSMENT: This is a 71-year-old male with a past medical history of chronic atrial fibrillation on Coumadin. He has a history of degenerative arthritis and is on Naprosyn p.r.n. He also has history of hypertension, benign prostatic hypertrophy, came with atypical chest pain. The patient did have an abdominal ultrasound on admission and it did show cholelithiasis, but the common bile duct measure d 6 mm, no reports of dilatation or any gallbladder wall thickening. He was noted to have an elevate d, alkaline phosphatase. He is also noted to have low vitamin D deficiency, rule out any peptic ulce r disease as well. with elevated alkaline phosphatase. We did order a GGTP level which is within nor mal limits. The patient does have a low vitamin D level. The patient's chest pain has resolved: PLAN: The patient is going to be discharged home. His workup so far was negative for any acute NE. We discussed with the patient regarding elective outpatient endoscopy which he could benefit from to rule out any peptic ulcer disease since he has history of use of Naprosyn. The abdominal ultrasound did reveal gallstones, but nondilated CBD and no signs of acute cholecystitis. He does have a histo ry of chronic atrial fibrillation. He is on Coumadin therapy. We will have to coordinate and discus s with cardiology regarding timing and bridging of Coumadin with possibly Lovenox. He is going to fo llow up with his merchant banker, Dr. Nicholas and Dr. Solorzano and he is planned to have an outpatient st ress test in the office upon discharge: The patient can continue on PPI, can recommend continued Pro tonix 40 mg daily, avoid any NSAIDs. He will follow up in our outpatient office. Thank you for this consult and for allowing us to participate in your patient's care. The patient wa s seen and case discussed with Dr. Miller. The patient is going to have outpatient bone scan sched uled. Erika VALERO cc: [id number] TT: 12/27/2016 15:03:53 Confirmation # [id number] Dictation # [id number] tn
--- NOTE | 2016-12-27 16:47 | CARD ---
APPROVED REPORT EKG Measurement Heart [id number] <Conclusion> Atrial fibrillation Abnormal ECG
--- NOTE | 2016-12-28 13:15 | NM ---
PROCEDURE: Whole Body Bone Scan HISTORY: ELEVATED ALKALINE PHOSPHATASE COMPARISON: None available. TECHNIQUE: Following administration of 20.3 miCu of Tc MDP multiplanar whole body images were obtained. FINDINGS: Evidence for bony metastatic disease: None. Degenerative uptake: Degenerative changes are seen in both shoulders and both knees as well as the feet and ankles. Physiologic uptake: Normal physiologic activity in the kidneys. Other findings: None. IMPRESSION: No evidence of bony metastatic disease.
== END 2016-12-27 16:11 | disposition home or self-care (01) ==
LOC: ED 12:09 → EROBSV 14:02 → ERH 15:24 → 2RNO 17:49 → OBSVTOIN 17:52 → INTOOBSV 17:52
PROVIDERS: ADMIT Internal Medicine; ATTEND Internal Medicine
DX: R07.89 Other chest pain (principal); R42 Dizziness and giddiness; I10 Essential (primary) hypertension; M17.0 Bilateral primary osteoarthritis of knee; N40.0 Benign prostatic hyperplasia without lower urinary tract symptoms; I35.0 Nonrheumatic aortic (valve) stenosis; I48.2 Chronic atrial fibrillation; K80.20 Calculus of gallbladder without cholecystitis without obstruction; F41.1 Generalized anxiety disorder; M10.9 Gout, unspecified; E78.5 Hyperlipidemia, unspecified; E66.01 Morbid (severe) obesity due to excess calories; K27.9 Peptic ulcer, site unspecified, unspecified as acute or chronic, without hemorrhage or perforation; E55.9 Vitamin D deficiency, unspecified; R74.8 Abnormal levels of other serum enzymes; Z68.41 Body mass index [BMI] 40.0-44.9, adult; Z79.01 Long term (current) use of anticoagulants; Z79.82 Long term (current) use of aspirin
CPT/HCPCS: 36415; 70450; 71010; 74176; 76700; 78306; 80053; 80074; 81001; 82306; 82550; 82948; 82977; 83520; 83615; 83735; 84484; 85025; 85610; 85651; 85730; 86021; 86039; 86060; 86160; 86225; 86334; 86335; 86592; 93005; 99285; A9561; G0378; Q9966

== ENCOUNTER 2017-10-03 11:24 | Inpatient (IN) | payer MEDICARE, BC ==
[2017-10-03 11:24] VITALS: BMI 42.5
--- NOTE | 2017-10-03 11:59 | ED PDOC ---
Arrival/HPI - General Time Seen by Provider: 10/03/17 11:52 Historian: Patient - History of Present Illness Narrative History of Present Illness (Text): 10/03/17 12:01 Patient is a 72 yo male with past medical history of atrial fibrillation ( taking warfarin), past medical history of prior bowel obstruction at young age, presents to the Emergency Department complaining of left lower quadrant abdominal pain. Patient states that three days ago after urinating, he sneezed, then coughed and had a sudden onset of left lower abdominal pain. Pain did not radiate to back. No chest pain or shortness of breath. States that he had constant pain throughout the rest of the day but pain resolved the next day. He then states that night he was "woken up by sharp severe pain". Pain constant since then. No associated nausea or vomiting. No right sided pain. No fever. Had loose stool on Friday nonbloody. No bowel movement since then which he states is atypical for him for he has been passing gas. He has been eating without difficulty. Pain not worse with meals. Denies dysuria or frequency. Past Medical History - Tetanus Immunization Tetanus Immunization: Unknown - Cardiac Hx Cardiac Disorders: Yes Hx Cardiac Arrhythmia: Yes (Afib) Hx Hypertension: Yes Hx Peripheral Edema: Yes - Pulmonary Hx Respiratory Disorders: Yes Hx Sleep Apnea: Yes (CPAP) - Neurological Hx Neurological Disorder: No - HEENT Hx HEENT Disorder: No - Renal Hx Renal Disorder: No - Endocrine/Metabolic Hx Endocrine Disorders: No - Hematological/Oncological Hx Blood Disorders: No - Integumentary Hx Dermatological Disorder: Yes (BILATERAL LE BROWNISH SKIN DISCOLORATION.PINPOINT RASH TO LE.ON COUMADIN.) - Musculoskeletal/Rheumatological Hx Musculoskeletal Disorders: Yes (BILATERAL KNEE PROBLEM) Hx Falls: Yes Hx Fractures: Yes (NASAL BONE FX,RADIAL HEAD FX,C1 FX,) Hx Unsteady Gait: Yes (CANE) - Gastrointestinal Hx Gastrointestinal Disorders: No - Genitourinary/Gynecological Hx Genitourinary Disorders: Yes (HESITANCY,DRIBBLING) Hx Prostate Problems: Yes (BPH) - Psychiatric Hx Psychophysiologic Disorder: No Hx Depression: No Hx Emotional Abuse: No Hx Physical Abuse: No Hx Substance Use: No - Surgical History Hx Appendectomy: Yes (1963. 5 FEET OF INTESTINE REMOVED.) - Suicidal Assessment Feels Threatened In Home Enviroment: No Family/Social History Smoking Status: Never Smoked Hx Alcohol Use: No Hx Substance Use: No Hx Substance Use Treatment: No Allergies/Home Meds Allergies/Adverse Reactions: Allergies No Known Allergies Allergy (Verified 12/26/16 16:56) Home Medications: Home Meds Medication Instructions Recorded Confirmed Atenolol [Tenormin] 200 mg PO DAILY 03/19/13 10/03/17 Tamsulosin [Flomax] 0.4 mg PO HS 12/28/14 10/03/17 Allopurinol [Zyloprim] 100 mg PO DAILY 12/26/16 10/03/17 Fosinopril Sodium [Fosinopril 10 mg PO DAILY 12/26/16 10/03/17 Sodium] Gemfibrozil [Lopid] 600 mg PO DAILY 12/26/16 10/03/17 Naproxen [Naprosyn] 1 tab PO PRN PRN 12/26/16 10/03/17 Nizatidine [Nizatidine] 150 mg PO DAILY 12/26/16 10/03/17 Potassium Chloride [K-Dur 20 mEq 20 meq PO DAILY 12/26/16 10/03/17 ER Tab] Warfarin [Coumadin] 4 mg PO HS 12/26/16 10/03/17 Review of Systems - Review of Systems Constitutional: Fatigue. absent: Fevers Eyes: absent: Vision Changes ENT: absent: Hearing Changes Respiratory: Cough. absent: SOB Cardiovascular: absent: Chest Pain, GARCÍA Gastrointestinal: Abdominal Pain, Other (looser stools, last bowel movement two days ago which is atypical for him). absent: Nausea, Vomiting, Appetite Changes , Hematochezia, Hematemesis Genitourinary Male: absent: Dysuria, Frequency, Hematuria, Urinary Output Changes Musculoskeletal: Back Pain. absent: Neck Pain Skin: absent: Rash Neurological: absent: Headache, Dizziness, Focal Weakness Endocrine: absent: Polyuria Hemo/Lymphatic: Easy Bruising Physical Exam Vital Signs Reviewed: Yes Vital Signs Temp Pulse Resp BP Pulse Ox 10/03/17 16:50 98.2 F 85 18 134/76 100 10/03/17 14:00 86 18 134/71 96 10/03/17 12:11 99.2 F 94 H 16 89/64 L 96 Temperature: Afebrile Pulse: Irregular Appearance: Positive for: Uncomfortable Pain Distress: Moderate Mental Status: Positive for: Alert and Oriented X 3 - Systems Exam Head: Present: Atraumatic Mouth: Present: Moist Mucous Membranes Nose (Internal): Present: Normal Inspection Neck: Present: Normal Range of Motion. No: Meningeal Signs Respiratory/Chest: Present: Clear to Auscultation. No: Respiratory Distress Cardiovascular: Present: Murmurs, Irregular Rhythm Abdomen: Present: Tenderness (focal left lower quadrant pain ), Distention, Other (there is ecchymosis noted to left lower abdominal wall extending to lateral flank and inguinal region, there is pain and mild firmness to left anterior abdominal wall with? nodular density, but no incarcerated hernia noted) . No: Rebound, McBurney's Point Tender Back: No: CVA Tenderness Upper Extremity: Present: NORMAL PULSES. No: Cyanosis Lower Extremity: Present: Edema, Neurovascularly Intact Neurological: Present: Motor Func Grossly Intact, Normal Sensory Function Skin: Present: Warm, Other (ecchymosis to left abdominal wall) Psychiatric: Present: Alert, Normal Insight, Normal Concentration Medical Decision Making ED Course and Treatment: 10/03/17 12:06 Patient with focal llq pain on exam. No peritoneal signs. Currently afebrile, no chest pain or sob. Sudden onset of pain reported. No pulsatile masses noted. Given prior surgical history, ddx includes hernia, incarceration, bowel obstruction, although also diverticulitis, colitis, kidney stone. Patient comfortable but with persistent pain "3/10" at this point. Discussed initial exam with patient's PMD Dr. Alexandre, will obtain early surgical consultation based on initial history and exam. On exam patient noted to have ecchymosis to left abdominal wall. No incarcerated hernia noted. He denies pain with eating, but states pain worse with certain movements and position. BP on re-evaluation is improved and stable. He is not tachycardic or hypotensive on re-exam. Dr. Sam requested for surgery consultation. I reviewed labs with PMD, leukocytosis noted but patient afebrile. He is noted to be slightly more anemic as well when compared to last available labs. INR is elevated. Coumadin held. CT reveals hematoma, ct reading reviewed with Dr. Alexandre as well as surgical consultation. I discussed abnormal labs, inr, wbc, hgb and abnormal ct findings with patient. On re-exam he has persistent pain. After consutation with Dr. Alexandre as well as surgery, patient will be administered vitamin k iv as well as FFP, based on bleeding noted in rectus muscle on ct in the context of elevated INR and drop in hgb from previous. I have discussed in laymen's terms risks and side effects of vitamin K iv and answered and patient's questions. I have discussed indications and risks of FFP to patient and family. Patient subsequently consented to transfusion. FFP ordered. Metal Spray Operator consulted as patient with risks of bleeding given elevated INR, and requires close monitoring of inr, bleeding, blood pressure and serial exams. Have also advised f/u of elevated WBC. He is afebrile and denies chest pain or shortness of breath, but reviewed with patient and family that infectious component cannot be completely excluded at this time. Case accepted to ICU by emergency management specialist, care turned over to admitting physician Dr. Alexandre and emergency management specialist for follow-up of transfusion of FFP and monitoring of blood counts and INR and abnormal labs. - Lab Interpretations Lab Results: 10/03/17 12:40 10/03/17 12:40 Lab Results 10/03/17 15:35: Blood Type A POSITIVE, Antibody Screen Negative, BBK History Checked No verified bt 10/03/17 14:14: Urine Color Yellow, Urine Appearance Clear, Urine pH 6.5, Ur Specific [place] 1.010, Urine Protein 30 H, Urine Glucose (UA) Negative, Urine Ketones Negative, Urine Blood Small H, Urine Nitrate Negative, Urine Bilirubin Negative, Urine Urobilinogen 0.2, Ur Leukocyte Esterase Negative, Urine RBC 2 - 5, Urine WBC 1 - 3, Ur Epithelial Cells 1 - 3 10/03/17 12:40: Sodium 141, Potassium 4.1, Chloride 104, Carbon Dioxide 23, Anion Gap 19, BUN 42 H, Creatinine 2.3 H, Est GFR ( Amer) 34, Est GFR ( Non-Af Amer) 28, Random Glucose 136 H, Calcium 10.7 H, Total Bilirubin 1.3, AST 46, ALT 36, Alkaline Phosphatase 64, Total Protein 7.8, Albumin 4.3, Globulin 3.5, Albumin/Globulin Ratio 1.2, Amylase 94, Lipase 177 10/03/17 12:40: PT 77.4 H, INR 6.48 H*, APTT 56.1 H 10/03/17 12:40: WBC 15.4 H D, RBC 4.08, Hgb 11.7 L, Hct 35.8 L, MCV 87.7, MCH 28.7, MCHC 32.7, RDW 15.4 H, Plt Count 202, MPV 9.4, Gran % 85.0 H, Lymph % ( Auto) 6.8 L, [place] % (Auto) 7.3 H, Eos % (Auto) 0.8 L, Baso % (Auto) 0.1, Gran # 13.05 H, Lymph # 1.1 L, [place] # 1.1 H, Eos # 0.1, Baso # 0.02 - RAD Interpretation Radiology Orders: 10/03/17 11:55 ABD & PELVIS PO CONTRAST ONLY [CT] Stat Pushcart Peddler: Radiologist - EKG Interpretation EKG Interpretation (Text): 10/03/17 22:57 EKG at 12:06 atrial fibrillation rate of 79 Interpreted by ED Physician: Yes Type: 12 lead EKG - Medication Orders Current Medication Orders: Famotidine (Pepcid) 20 mg PO HS [facility] Last Admin: 10/03/17 21:47 Dose: 20 mg Gemfibrozil (Lopid) 600 mg PO BID [facility] Last Admin: 10/03/17 18:55 Dose: 600 mg Sodium Chloride (Sodium Chloride 0.45%) 1,000 mls @ 70 mls/hr IV .[id number] [facility] Last Admin: 10/03/17 19:25 Dose: 70 mls/hr eMAR Start Stop Document 10/03/17 19:25 MMA (Rec: 10/03/17 19:25 [id number] Intravenous Solution Start Date 10/03/17 Start Time 19:25 Nitroglycerin (Nitro-Bid 2% Oint) 1 ea TOP Q4H PRN PRN Reason: accelerated hypertension Tamsulosin HCl (Flomax) 0.4 mg PO STAT [facility] Last Admin: 10/03/17 21:47 Dose: 0.4 mg Discontinued Medications Acetaminophen (Tylenol 325mg Tab) 650 mg PO ONCE ONE Stop: 10/03/17 19:03 Last Admin: 10/03/17 19:20 Dose: 650 mg MAR Pain/Vitals Document 10/03/17 19:20 MMA (Rec: 10/03/17 19:21 [id number] Pain Reassessment Is This A Pain ReAssessment? No Sleep Is patient sleeping during reassessment? No Presence of Pain Presence of Pain No Vitals Temperature (97.6 F-99.6 F) 99.9 F Phytonadione 10 mg/ Sodium (Chloride) 51 mls @ 100 mls/hr IV ONCE ONE Stop: 10/03/17 15:15 Last Admin: 10/03/17 16:11 Dose: 100 mls/hr eMAR Start Stop Document 10/03/17 16:11 RG (Rec: 10/03/17 16:12 RG [id number]) Intravenous Solution Start Date 10/03/17 Start Time 16:11 End Date 10/03/17 End time 16:41 Total Infusion Time 30 Disposition/Present on Arrival - Present on Arrival Any Indicators Present on Arrival: No History of DVT/PE: No History of Uncontrolled Diabetes: No Urinary Catheter: No History Surgical Site Infection Following: None - Disposition Have Diagnosis and Disposition been Completed?: Yes Diagnosis: Abdominal hematoma, Elevated INR, Abdominal pain, Leukocytosis, Anemia, Renal insufficiency Disposition: HOSPITALIZED Disposition Time: 15:00 Patient Plan: Admission, ICU Patient Problems: Current Active Problems Problem Status Onset Abdominal hematoma Acute Abdominal pain Acute Anemia Acute Elevated INR Acute Leukocytosis Acute Renal insufficiency Acute Condition: SERIOUS
[2017-10-03] MEDS ORDERED: Iohexol 240 (50 ml) ONE (12:17)
[2017-10-03 12:46] LABS: BASO # 0.02 K/mm3 (0.0-2.0); BASO % 0.1 % (0.0-3.0); EOS # 0.1 (0.0-0.7); EOS % 0.8 % (1.5-5.0); GRAN # 13.05 (1.4-6.5); HEMOGLOBIN 11.7 g/dL (14.0-18.0); LYMPH # 1.1 (1.2-3.4); LYMPH % 6.8 % (22.0-35.0); MEAN CELL VOLUME 87.7 fl (80.0-105.0); MEAN CORPUSCULAR HEMOGLOBIN 28.7 pg (25.0-35.0); MEAN CORPUSCULAR HGB CONC 32.7 g/dl (31.0-37.0); MEAN PLATELET VOLUME 9.4 fl (7.0-11.0); MONO # 1.1 (0.1-0.6); MONO % 7.3 % (1.0-6.0); RBC 4.08 10^6/uL (3.5-6.1); RED CELL DISTRIBUTION WIDTH 15.4 % (11.5-14.5); WHITE BLOOD COUNT 15.4 10^3/ul (4.5-11.0)
[2017-10-03 12:57] LABS: ALB/GLOB RATIO 1.2 (1.1-1.8); ALBUMIN 4.3 g/dL (3.0-4.8); CALCIUM 10.7 mg/dL (8.4-10.5)
[2017-10-03 12:59] LABS: PARTIAL THROMBOPLASTIN TIME 56.1 Seconds (25.1-36.5); PROTHROMBIN TIME 77.4 SECONDS (9.4-12.5)
[2017-10-03 13:00] LABS: INR 6.48 (0.93-1.08)
[2017-10-03 14:30] LABS: PH,URINE 6.5 (4.7-8.0); URINE BILIRUBIN NEGATIVE (NEGATIVE); URINE BLOOD SMALL (NEGATIVE); URINE GLUCOSE (UA) NEGATIVE (NEGATIVE); URINE LEUKOCYTE ESTERASE NEGATIVE Leu/uL (NEGATIVE); URINE NITRATE NEGATIVE (NEGATIVE); URINE PROTEIN 30 mg/dL (<30 mg/dL); URINE UROBILINOGEN 0.2 E.U./dL (<1 E.U./dL)
--- NOTE | 2017-10-03 14:33 | CT ---
PROCEDURE: CT Abdomen and Pelvis without intravenous contrast HISTORY: llq abdominal pain COMPARISON: None. TECHNIQUE: Without contrast. Contrast Dose: Radiation dose: Total exam DLP = 1615 mGy-cm. This CT exam was performed using one or more of the following dose reduction techniques: Automated exposure control, adjustment of the mA and/or kV according to patient size, and/or use of iterative reconstruction technique. FINDINGS: LOWER THORAX: Unremarkable. LIVER: Unremarkable. No gross lesion or ductal dilatation. GALLBLADDER AND BILE DUCTS: Multiple gallstones PANCREAS: Unremarkable. No gross lesion or ductal dilatation. SPLEEN: Unremarkable. ADRENALS: Unremarkable. No mass. KIDNEYS AND URETERS: Unremarkable. No hydronephrosis. No solid mass. VASCULATURE: Unremarkable. No aortic aneurysm. BOWEL: Unremarkable. No obstruction. No gross mural thickening. APPENDIX: Unremarkable. Normal appendix. PERITONEUM: Unremarkable. No free fluid. No free air. LYMPH NODES: Unremarkable. No enlarged lymph nodes. BLADDER: Unremarkable REPRODUCTIVE: Unremarkable. BONES: No acute fracture. OTHER FINDINGS: There is a large left-sided hematoma in the rectus muscle which measures 20 cm in length by 6 cm in diameter. There is a more focal component extending into the left side of the pelvis measuring 7.7 x 10 cm. IMPRESSION: There is a large hematoma in the left rectus muscle with extension into the left side of the pelvis
[2017-10-03 14:45] LABS: URINE APPEARANCE CLEAR (CLEAR); URINE COLOR YELLOW (YELLOW)
[2017-10-03] MEDS ORDERED: Phytonadione 10 MG in Sodium Chloride 0.9% 50 ML IV ONE (14:45)
--- NOTE | 2017-10-03 16:51 | CP.PCM.CON ---
History of Present Illness - History of Present Illness History of Present Illness: Critical Care Consult Note HPI Patient is 72yo male with PMHx of SAL on CPAP, Afib on Coumadin, HTN, presented with abdominal pain. Pt notes the abdominal pain started 3-4 days ago, progressively getting worse, L sided, radiating around the flank, without alleviating or aggravating factors. In the ER CT A/P found ot have large L rectus muscle hematoma, INR 6.48. Pt set to received 2u FFP, and VitK 10mg IV x 1. Pt denies fever,chills, cough, chest pain, palpitations, melena, GRIMM, dizziness. No other constitutional symptoms. Seen by surgery, no acute surgical intervention at this time. PMHx SAL, Afib on Coumadin, HTN PSHx Appendectomy Allergies NKDA FHx NC Meds as per EMR ROS as above Review of Systems - Review of Systems Review of Systems: as per HPI Past Patient History - Tetanus Immunizations Tetanus Immunization: Unknown - Past Social History Smoking Status: Never Smoked - CARDIAC Hx Cardiac Disorders: Yes Hx Cardia Arrhythmia: Yes (Afib) Hx Hypertension: Yes Hx Peripheral Edema: Yes - PULMONARY Hx Respiratory Disorders: Yes Hx Sleep Apnea: Yes (CPAP) - NEUROLOGICAL Hx Neurological Disorder: No - HEENT Hx HEENT Problems: No - RENAL Hx Chronic Kidney Disease: No - ENDOCRINE/METABOLIC Hx Endocrine Disorders: No - HEMATOLOGICAL/ONCOLOGICAL Hx Blood Disorders: No - INTEGUMENTARY Hx Dermatological Problems: Yes (BILATERAL LE BROWNISH SKIN DISCOLORATION.PINPOINT RASH TO LE.ON COUMADIN.) - MUSCULOSKELETAL/RHEUMATOLOGICAL Hx Musculoskeletal Disorders: Yes (BILATERAL KNEE PROBLEM) Hx Falls: Yes Hx Fractures: Yes (NASAL BONE FX,RADIAL HEAD FX,C1 FX,) Hx Unsteady Gait: Yes (CANE) - GASTROINTESTINAL Hx Gastrointestinal Disorders: No - GENITOURINARY/GYNECOLOGICAL Hx Genitourinary Disorders: Yes (HESITANCY,DRIBBLING) Hx Prostate Problems: Yes (BPH) - PSYCHIATRIC Hx Psychophysiologic Disorder: No Hx Depression: No Hx Emotional Abuse: No Hx Physical Abuse: No Hx Substance Use: No - SURGICAL HISTORY Hx Appendectomy: Yes (1963. 5 FEET OF INTESTINE REMOVED.) Meds Allergies/Adverse Reactions: Allergies Allergy/AdvReac Type Severity Reaction Status Date / Time No Known Allergies Allergy Verified 12/26/16 16:56 Physical Exam - Constitutional Appears: Well, Non-toxic, No Acute Distress - Head Exam Head Exam: NORMAL INSPECTION - Eye Exam Eye Exam: Normal appearance - ENT Exam ENT Exam: Mucous Membranes Moist - Respiratory Exam Respiratory Exam: Clear to Auscultation Bilateral, NORMAL BREATHING PATTERN - Cardiovascular Exam Cardiovascular Exam: REGULAR RHYTHM, +S1, +S2 - GI/Abdominal Exam GI & Abdominal Exam: Normal Bowel Sounds, Soft Additional comments: L sided ecchymosis/hematoma, tenderness Results - Vital Signs Recent Vital Signs: Last Vital Signs Temp 99.2 F 10/03/17 12:11 Pulse 86 10/03/17 14:00 Resp 18 10/03/17 14:00 BP 134/71 10/03/17 14:00 Pulse Ox 96 10/03/17 14:00 - Labs Result Diagrams: 10/03/17 12:40 10/03/17 12:40 Labs: Laboratory Results - last 24 hr 10/03/17 10/03/17 10/03/17 12:40 12:40 12:40 WBC 15.4 H D RBC 4.08 Hgb 11.7 L Hct 35.8 L MCV 87.7 MCH 28.7 MCHC 32.7 RDW 15.4 H Plt Count 202 MPV 9.4 Gran % 85.0 H Lymph % (Auto) 6.8 L [place] % (Auto) 7.3 H Eos % (Auto) 0.8 L Baso % (Auto) 0.1 Gran # 13.05 H Lymph # 1.1 L [place] # 1.1 H Eos # 0.1 Baso # 0.02 PT 77.4 H INR 6.48 H* APTT 56.1 H Sodium 141 Potassium 4.1 Chloride 104 Carbon Dioxide 23 Anion Gap 19 BUN 42 H Creatinine 2.3 H Est GFR ( Amer) 34 Est GFR (Non-Af Amer) 28 Random Glucose 136 H Calcium 10.7 H Total Bilirubin 1.3 AST 46 ALT 36 Alkaline Phosphatase 64 Total Protein 7.8 Albumin 4.3 Globulin 3.5 Albumin/Globulin Ratio 1.2 Amylase 94 Lipase 177 Urine Color Urine Appearance Urine pH Ur Specific [place] Urine Protein Urine Glucose (UA) Urine Ketones Urine Blood Urine Nitrate Urine Bilirubin Urine Urobilinogen Ur Leukocyte Esterase Urine RBC Urine WBC Ur Epithelial Cells BBK History Checked 10/03/17 10/03/17 14:14 15:35 WBC RBC Hgb Hct MCV MCH MCHC RDW Plt Count MPV Gran % Lymph % (Auto) [place] % (Auto) Eos % (Auto) Baso % (Auto) Gran # Lymph # [place] # Eos # Baso # PT INR APTT Sodium Potassium Chloride Carbon Dioxide Anion Gap BUN Creatinine Est GFR ( Amer) Est GFR (Non-Af Amer) Random Glucose Calcium Total Bilirubin AST ALT Alkaline Phosphatase Total Protein Albumin Globulin Albumin/Globulin Ratio Amylase Lipase Urine Color Yellow Urine Appearance Clear Urine pH 6.5 Ur Specific [place] 1.010 Urine Protein 30 H Urine Glucose (UA) Negative Urine Ketones Negative Urine Blood Small H Urine Nitrate Negative Urine Bilirubin Negative Urine Urobilinogen 0.2 Ur Leukocyte Esterase Negative Urine RBC 2 - 5 Urine WBC 1 - 3 Ur Epithelial Cells 1 - 3 BBK History Checked No verified bt - Imaging and Cardiology CT scan - abdomen Status: Image reviewed by me, Report reviewed by me Assessment & Plan - Assessment and Plan (Free Text) Assessment: 72yo male a/w large Left rectus muscle hematoma Rectus Muscle hematoma Afib on A/C, Coumadin HTN Sleep Apnea on CPAP - currently afebrile, HD stable, SBP 120-130s, comfortable NAD - CT A/P with large L sided rectus hematoma, INR 6.48, set to receive 2u FFP, VitK 10mg IV x 1 - seen by surgery, consult appreciated - hold Coumadin for now - 2u FFP, Vit K 10mg IV x1 - repeat INR thereafter - monitor HH q6hr - follow up surgery - serial abdominal exams - cardiology consult - BP control - check UA, U[place]tes - IVF hydration - CPAP at night - GI ppx, PPI - DVT ppx, SCDs - Monitor in MICU critical care time 35 minutes
--- NOTE | 2017-10-03 17:42 | RAD ---
HISTORY: admission, afib COMPARISON: 12/26/2016 FINDINGS: LUNGS: No active pulmonary disease. PLEURA: No significant pleural effusion identified, no pneumothorax apparent. CARDIOVASCULAR: No radiographic findings to suggest acute or significant cardiovascular disease. OSSEOUS STRUCTURES: No significant abnormalities. VISUALIZED UPPER ABDOMEN: Normal. OTHER FINDINGS: None. IMPRESSION: No active disease. No significant interval change compared to the prior examination(s).
[2017-10-03] MEDS ORDERED: Nitroglycerin 2% Ointment Foilpak UD TOP PRN (19:00)
[2017-10-03] MEDS: Sodium Chloride 0.45% 1,000 ML IV SCH (19:25)
--- NOTE | 2017-10-03 20:02 | CARD ---
APPROVED REPORT EKG Measurement Heart [id number] <Conclusion> Atrial fibrillation Abnormal ECG
[2017-10-03 21:14] LABS: HEMOGLOBIN 10.6 g/dL (14.0-18.0); MEAN CELL VOLUME 87.8 fl (80.0-105.0); MEAN CORPUSCULAR HEMOGLOBIN 28.8 pg (25.0-35.0); MEAN CORPUSCULAR HGB CONC 32.8 g/dl (31.0-37.0); RBC 3.68 10^6/uL (3.5-6.1); RED CELL DISTRIBUTION WIDTH 15.3 % (11.5-14.5); WHITE BLOOD COUNT 16.2 10^3/ul (4.5-11.0)
[2017-10-03 21:20] LABS: PROTHROMBIN TIME 25.4 SECONDS (9.4-12.5)
[2017-10-03 21:21] LABS: INR 2.19 (0.93-1.08)
[2017-10-03] MEDS ORDERED: Influenza Vaccine 60 mcg/0.5 mL SYR (4YR UP) IM ONE (23:07)
[2017-10-03] MEDS ORDERED: Pneumococcal 23-Valent Vaccine IM ONE (23:07)
--- NOTE | 2017-10-04 06:08 | HP ---
DATE: This 72-year-old male was admitted to intensive care. He presented to the [facility] earlier with a two-day history of left lower abdominal pain, which he states started with a dull ache that progressed to a sharp stabbing pain over the past 48 hours. He states that he was at work two days ago and after a vigorous cough felt a pop in his left abdominal wall and subsequently the persistent onset of abdominal discomfort. He initially applied a Lidoderm patch which he had in his home which he uses for degenerative arthritic issues and in the beginning, it controlled the pain but on the second day there was no pain relief with this modality. Tylenol offered initial pain reduction but subsequently today the pain was 7/10 in intensity, and the patient was advised to come to ER for further evaluation of the above. 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 OUTPATIENT MEDICATIONS: Included Coumadin, Flomax, Axid, Lopid, lisinopril, hydrochlorothiazide, Tenormin, and Zyloprim. ALLERGIES: THE PATIENT HAS NO KNOWN ALLERGIES TO MEDICATION. SOCIAL HISTORY: He is a nondrinker, nonsmoker, non-IV drug misuser. FAMILY HISTORY: Noncontributory. REVIEW OF SYSTEMS: CONSTITUTIONAL: He denied fever or chills. EYES: No change in visual acuity. EARS: No hearing loss. THROAT: No swallowing difficulty. NECK: No stiffness. CARDIAC: Chronic hypertension and atrial fibrillation for which the patient takes Coumadin. PULMONARY: No hemoptysis. GI: As per HPI. : Prostate hypertrophy. VASCULAR: No claudication. PSYCHOLOGICAL: No depression. NEUROLOGICAL: No stroke. SKIN: Without rash. No ulcerations. MUSCULOSKELETAL: Severe degenerative arthritis, history of gout. PHYSICAL EXAMINATION: VITAL SIGNS: Temperature 99.2, respirations 16, pulse 94, blood pressure initially 89/64, now 134/71 with pulse ox 96% on room air. 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 HEAD: Normocephalic, atraumatic. EYES: No icterus. EARS: Clear. THROAT: Non-injected. NECK: Supple. HEART: Irregular. S1, S2. LUNGS: Clear. ABDOMEN: Obese with ecchymosis on his left abdominal wall. Audible bowel sounds in all four quadrants. No rebound, no guarding. Mild tenderness over the area of his left abdomen where the ecchymosis was present. No obvious hernia. VASCULAR: Legs warm to touch. EXTREMITIES: Lower extremities: No clubbing, cyanosis, or edema. SKIN: Without rash. NEUROLOGICAL: Intact. PSYCHOLOGICAL: Alert. LABORATORY DATA: Sodium 141, potassium 4.1, chloride 104, bicarb 23, BUN 42, creatinine 2.3, random blood sugar 136. Bilirubin 1.3, AST 46, ALT 36, alkaline phosphatase 64, amylase 94, lipase 177. PT/INR 6.48, PTT 56.1. Urinalysis showed 2-5 rbc's, 30 mg/dL of protein, and no sugar. X- rays were reviewed. Chest x-ray showed no obvious infiltrate, no pleural effusion, no pneumothorax, no CHF. An abdominal pelvic CT was reviewed, read by Dr. Murray Saeed; it showed a large left-sided hematoma in the rectus muscle which measured 20 cm in length x 6 cm in diameter with a more focal component extending into the left side of the pelvis measuring 7.7 x 10 cm. The patient has multiple gallstones. Kidneys were unremarkable. No mass, no hydronephrosis. Bowel showed no obstruction. Peritoneum was unremarkable with no free fluid, no free air. Bladder was unremarkable. EKG showed atrial fibrillation with nonspecific ST-T wave changes. IMPRESSION: A 72-year-old male with multiple medical problems as listed above including obstructive sleep apnea, on outpatient CPAP; chronic atrial fibrillation, on Coumadin; chronic hypertension; obesity; asymptomatic gallstones; degenerative arthritis; gout; hyperlipidemia; prostate hypertrophy; now with a spontaneous rectus abdominal wall hematoma noted by the patient historically after a cough in the absence of trauma with coagulopathy and abdominal pain, mild leukocytosis, mild anemia, azotemia. PLAN: To admit this patient to critical care. He will be seen by Dr. Pa Sam from Surgery. Coumadin has been held. He has been ordered to receive 2 units of fresh frozen plasma and vitamin K 10 mg IV x1 dose. The patient will then have a repeat INR and will have his hemoglobin/hematocrit monitored every 6 hours. He will have serial abdominal exams in the intensive care unit and as per Surgery and will be ordered to have Pepcid for GI prophylaxis nightly, CPAP at night with his settings as at home. He will be ordered to have sequential compression device stockings for DVT prophylaxis and I have ordered repeat CBC, INR, urine culture, and a comprehensive metabolic panel to be repeated in the a.m. while ordering him to have 0.45 saline given his recent azotemia. and he will also receive Flomax 0.4 mg daily, Lopid 600 mg b.i.d., nitroglycerin 1 inch to chest wall q.4h. p.r.n. accelerated hypertension if systolic blood pressure should be greater than 160 or diastolic blood pressure should be greater than 100. He will also be ordered to have Pepcid 20 mg p.o. at bedtime and a followup consultation with Dr. Fer Nicholas from Cardiology. Greater than 75 minutes was spent in the care, review of x-rays, labs, outlining of medication, and discussion of this patient today with emergency room physician, Dr. Yamil Erickson, the patient, family, intensive care, and surgery. All of the above was explained in detail to the patient. All questions were answered. He will require intensive care monitoring until cleared by Cardiology and Surgery. The patient was aware and in agreement with the above. Mami Alexandre MD MTDKai
[2017-10-04] MEDS ORDERED: Sodium Chloride 0.9% 500 ML IV STA ×2 (08:00→10:44)
[2017-10-04 08:02] LABS: HEMOGLOBIN 9.7 g/dL (14.0-18.0); MEAN CELL VOLUME 88.1 fl (80.0-105.0); MEAN CORPUSCULAR HEMOGLOBIN 28.9 pg (25.0-35.0); MEAN CORPUSCULAR HGB CONC 32.8 g/dl (31.0-37.0); MEAN PLATELET VOLUME 9.2 fl (7.0-11.0); RBC 3.36 10^6/uL (3.5-6.1); RED CELL DISTRIBUTION WIDTH 15.6 % (11.5-14.5); WHITE BLOOD COUNT 12.6 10^3/ul (4.5-11.0)
[2017-10-04 08:12] LABS: ALB/GLOB RATIO 1.1 (1.1-1.8); ALBUMIN 3.6 g/dL (3.0-4.8); CALCIUM 9.4 mg/dL (8.4-10.5)
[2017-10-04 08:20] LABS: INR 1.53 (0.93-1.08); PROTHROMBIN TIME 17.7 SECONDS (9.4-12.5)
[2017-10-04] MEDS: Sodium Chloride 0.45% 1,000 ML IV SCH (09:48)
[2017-10-04 11:56] LABS: HEMOGLOBIN 9.6 g/dL (14.0-18.0)
[2017-10-04] MEDS ORDERED: Sodium Chloride 0.9% 1,000 ML IV SCH (12:45)
[2017-10-04] MEDS: Sodium Chloride 0.9% 500 ML IV STA ×2 (13:39→14:16)
--- NOTE | 2017-10-04 15:56 | CP.PCM.CON ---
History of Present Illness - History of Present Illness History of Present Illness: Surgery Consult note. Dr. Sam 72yo M with PMHx of Sleep apnea, A.Fib on warfarin, HTN here for evaluation of abdominal pain. Pain started in the left inguinal region 4 days ago and slowly became worse. Pain described as sharp/tight in nature. He denies any remitting or exacerbating factors. Denies any trauma. No N/V/D. No F/C. No signs of overt bleeding, no cough. No CP/SOB. No headaches. No melena, no rectal bleeding. Never has had similar symptoms in the past. CT Abd/Pelvis in the ER with evidence of L rectus sheath hematoma. Patient was noted to have supratheraputic INR. PMHx: Obstructive Sleep Apnea, Afib on coumadin, HTN PSHx: Appendectomy; Ex Lap with Small bowel resection due to ?obstruction Social Hx: Denies Tobacco; Denies ETOH; Denies illicit drugs NKDA Review of Systems - Review of Systems All systems: reviewed and no additional remarkable complaints except - Constitutional Constitutional: absent: Chills, Fever - Cardiovascular Cardiovascular: absent: Chest Pain, Dyspnea - Respiratory Respiratory: absent: Cough, Dyspnea - Gastrointestinal Gastrointestinal: Abdominal Pain. absent: Diarrhea, Nausea, Vomiting - Genitourinary Genitourinary: absent: Dysuria - Psychiatric Psychiatric: absent: Anxiety Past Patient History - Tetanus Immunizations Tetanus Immunization: Unknown - Past Social History Smoking Status: Never Smoked - CARDIAC Hx Cardiac Disorders: Yes Hx Cardia Arrhythmia: Yes (Afib) Hx Hypertension: Yes Hx Peripheral Edema: Yes - PULMONARY Hx Respiratory Disorders: Yes Hx Sleep Apnea: Yes (CPAP) - NEUROLOGICAL Hx Neurological Disorder: No - HEENT Hx HEENT Problems: No - RENAL Hx Chronic Kidney Disease: No - ENDOCRINE/METABOLIC Hx Endocrine Disorders: No - HEMATOLOGICAL/ONCOLOGICAL Hx Blood Disorders: No - INTEGUMENTARY Hx Dermatological Problems: Yes (BILATERAL LE BROWNISH SKIN DISCOLORATION.PINPOINT RASH TO LE.ON COUMADIN.) - MUSCULOSKELETAL/RHEUMATOLOGICAL Hx Musculoskeletal Disorders: Yes (BILATERAL KNEE PROBLEM) Hx Falls: Yes Hx Fractures: Yes (NASAL BONE FX,RADIAL HEAD FX,C1 FX,) Hx Unsteady Gait: Yes (CANE) - GASTROINTESTINAL Hx Gastrointestinal Disorders: No - GENITOURINARY/GYNECOLOGICAL Hx Genitourinary Disorders: Yes (HESITANCY,DRIBBLING) Hx Prostate Problems: Yes (BPH) - PSYCHIATRIC Hx Psychophysiologic Disorder: No Hx Depression: No Hx Emotional Abuse: No Hx Physical Abuse: No Hx Substance Use: No - SURGICAL HISTORY Hx Appendectomy: Yes (1963. 5 FEET OF INTESTINE REMOVED.) Meds Allergies/Adverse Reactions: Allergies Allergy/AdvReac Type Severity Reaction Status Date / Time No Known Allergies Allergy Verified 12/26/16 16:56 - Medications Medications: Current Medications Acetaminophen (Tylenol 325mg Tab) 650 mg PO Q6H PRN PRN Reason: Pain, moderate (4-7) Last Admin: 10/04/17 10:36 Dose: 650 mg Famotidine (Pepcid) 20 mg PO HS [facility] Last Admin: 10/03/17 21:47 Dose: 20 mg Gemfibrozil (Lopid) 600 mg PO BID [facility] Last Admin: 10/04/17 09:47 Dose: 600 mg Sodium Chloride (Sodium Chloride 0.9%) 1,000 mls @ 70 mls/hr IV .[id number] [facility] Last Admin: 10/04/17 14:15 Dose: 70 mls/hr Tamsulosin HCl (Flomax) 0.4 mg PO STAT [facility] Last Admin: 10/03/17 21:47 Dose: 0.4 mg Physical Exam - Constitutional Appears: Well, Non-toxic, No Acute Distress - Head Exam Head Exam: ATRAUMATIC, NORMAL INSPECTION, NORMOCEPHALIC - Eye Exam Eye Exam: EOMI - ENT Exam ENT Exam: Mucous Membranes Moist - Respiratory Exam Respiratory Exam: NORMAL BREATHING PATTERN. absent: Accessory Muscle Use, Respiratory Distress - GI/Abdominal Exam GI & Abdominal Exam: Soft. absent: Distended, Firm, Guarding, Rebound, Rigid Additional comments: LLQ ecchymosis noted. Mild tenderness to palpation in LLQ. - Extremities Exam Extremities exam: Positive for: normal inspection. Negative for: calf tenderness - Back Exam Back exam: NORMAL INSPECTION - Neurological Exam Neurological exam: Alert, Oriented x3 - Skin Skin Exam: Dry, Intact, Warm Results - Vital Signs Recent Vital Signs: Last Vital Signs Temp 98.5 F 10/04/17 12:00 Pulse 81 10/04/17 15:30 Resp 13 10/04/17 15:30 BP 81/49 L 10/04/17 15:00 Pulse Ox 79 L 10/04/17 15:30 - Labs Result Diagrams: 10/04/17 16:55 10/04/17 07:45 Labs: Laboratory Results - last 24 hr 10/03/17 10/03/17 10/03/17 16:31 21:03 21:03 WBC 16.2 H RBC 3.68 Hgb 10.6 L Hct 32.3 L MCV 87.8 MCH 28.8 MCHC 32.8 RDW 15.3 H Plt Count 180 MPV 9.0 PT 25.4 H INR 2.19 H Sodium Potassium Chloride Carbon Dioxide Anion Gap BUN Creatinine Est GFR ( Amer) Est GFR (Non-Af Amer) Random Glucose Calcium Total Bilirubin AST ALT Alkaline Phosphatase Total Protein Albumin Globulin Albumin/Globulin Ratio Blood Type Confirm A POSITIVE 10/04/17 10/04/17 10/04/17 07:45 07:45 07:45 WBC 12.6 H D RBC 3.36 L Hgb 9.7 L Hct 29.6 L MCV 88.1 MCH 28.9 MCHC 32.8 RDW 15.6 H Plt Count 158 MPV 9.2 PT 17.7 H INR 1.53 H Sodium 138 Potassium 3.9 Chloride 104 Carbon Dioxide 22 Anion Gap 16 BUN 38 H Creatinine 2.3 H Est GFR ( Amer) 34 Est GFR (Non-Af Amer) 28 Random Glucose 105 Calcium 9.4 Total Bilirubin 2.5 H AST 37 ALT 38 Alkaline Phosphatase 53 Total Protein 6.8 Albumin 3.6 Globulin 3.2 Albumin/Globulin Ratio 1.1 Blood Type Confirm 10/04/17 11:30 WBC RBC Hgb 9.6 L Hct 29.2 L MCV MCH MCHC RDW Plt Count MPV PT INR Sodium Potassium Chloride Carbon Dioxide Anion Gap BUN Creatinine Est GFR ( Amer) Est GFR (Non-Af Amer) Random Glucose Calcium Total Bilirubin AST ALT Alkaline Phosphatase Total Protein Albumin Globulin Albumin/Globulin Ratio Blood Type Confirm Assessment & Plan - Assessment and Plan (Free Text) Assessment: 72yo M with L rectus muscle hematoma - No acute surgical intervention at this time - We will continue to monitor the patient's status clinically - monitor H/H - f/u AM coags - correct coagulopathy Further recs as per Dr. Flaco Morris PGY1 surgery pager:[phone]
[2017-10-04] MEDS: guaiFENesin 200 mg/10 ml Syrup UD PO PRN (19:46)
[2017-10-04 20:35] LABS: HEMOGLOBIN 9.6 g/dL (14.0-18.0)
--- NOTE | 2017-10-04 20:40 | CON ---
DATE: 10/04/2017 REQUESTING PHYSICIAN: Mami Alexandre MD REASON FOR CONSULTATION: Atrial fibrillation and abdominal pain. HISTORY OF PRESENT ILLNESS: This is a 72-year-old man well known to me with a history of chronic atrial fibrillation and aortic stenosis, who was admitted with severe left lower quadrant pain. CT scan showed evidence of a rectus muscle hematoma. For the past several weeks, he has been bothered by flu-like symptoms with fever and cough. He was placed on ampicillin. He is on chronic Coumadin therapy. His INR on admission was 6.48. He is seen in bed in the CCU. He feels somewhat improved. Repeat INR this morning is 1.53. He denies any chest pain or dyspnea. PAST MEDICAL HISTORY: Notable for the problems mentioned above. He does have severe osteoarthritis of his knees as well as chronic obesity. He has a history of longstanding hypertension as well. He has had peptic ulcer disease, gastroesophageal reflux disease and prior gout. MEDICATIONS: His medication at home include warfarin, Flomax, Axid, Lopid, lisinopril, Tenormin, hydrochlorothiazide, and Zyloprim. ALLERGIES: NONE. SOCIAL HISTORY: He does not smoke or drink. 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 FAMILY HISTORY: Unremarkable for premature heart disease. Both parents with age related illness. REVIEW OF SYSTEMS: A 10-point review of systems is notable mainly for problems mentioned above. PHYSICAL EXAMINATION: GENERAL: He is an overweight middle-aged man. VITAL SIGNS: His blood pressure is 106/46 with a pulse of 76, atrial fibrillation, respirations were 16. He is afebrile. HEENT: Normocephalic and atraumatic. Diminished and delayed carotid upstrokes were noted. CHEST: Bilateral scattered rhonchi. HEART: PMI displaced laterally with an irregular regular rhythm. A mid peaking systolic murmur is noted at the base radiating to the carotids. ABDOMEN: Soft and bowel sounds are present. There is a hematoma noted in the left inguinal region and mild diffuse tenderness present in the same area. EXTREMITIES: No clubbing, cyanosis or edema. SKIN: Warm and dry. PSYCHIATRIC: Normal mood and affect. NEUROLOGIC: Alert and oriented x3. No gross motor or sensory is appreciable.. DIAGNOSTIC DATA: Potassium 3.9, BUN and creatinine 38 and 2.3. White count 12.6, hemoglobin and hematocrit 9.7 and 29.6, on admission his hemoglobin was 11.7. As mentioned, INR is currently 1.53. His electrocardiogram reveals atrial fibrillation with nonspecific ST-T abnormalities. Chest x-ray reveals normal cardiac silhouette with clear lung chester. CT abdomen and pelvis reveals evidence of a large extensive rectus abdominus hematoma. IMPRESSION: 1. Abdominal pain secondary to spontaneous hematoma of the rectus muscle likely due to excessive anticoagulation and violent coughing of late. 2. Chronic atrial fibrillation with controlled rate at present. 3. Moderate aortic stenosis, asymptomatic. 4. Supratherapeutic INR likely due to interaction of ampicillin and Coumadin. RECOMMENDATIONS: Coumadin therapy should be withheld for now to allow for resolution of his hematoma. Withholding Coumadin for 7-10 days would not be unreasonable as the risk of thromboembolic events will be fairly low and allow for more rapid healing of his abdominal wall hematoma. Local heat and analgesic therapy can continue. Resumption of beta-chantal therapy for rate control once his blood pressure is improved would be appropriate. We will continue to follow along and make further recommendations as appropriate. Fer Nicholas MD
--- NOTE | 2017-10-04 22:44 | CON ---
DATE: HISTORY OF PRESENT ILLNESS: Juan Bai is seen in the Emergency Room again on the floor in the ICU. He is admitted for abdominal pain, has ecchymosis on the left lower quadrant. CAT scan showing a rectal hematoma into the pelvis. His white count is normal at 15, hemoglobin on admission is 11.7. ProTime on admission is 77 with an INR of 6.48, this is corrected to 17.7 with an INR of 1.5. He did not receive any blood, but he has got 2 units of FFP. His hemoglobin, I am told, is down to 9.7. His blood pressure is little bit low, and my advise would be to transfuse him. The patient is admitted from the Emergency Room for spontaneous left lower quadrant pain, after he sneezed, he felt a pop and the pain got worse, it has been throbbing. No nausea, vomiting, diarrhea, constipation, bright red blood per rectum, or melena. No fevers or chills. PAST MEDICAL HISTORY: Remarkable for morbid obesity, chronic hypertension, chronic atrial fibrillation and he is on Coumadin as prophylaxis, prostate hypertrophy, peptic ulcer disease with GERD, severe DJD of both knees, hyperlipidemia, and gout. MEDICATIONS: He takes multiple medications including Coumadin, Flomax, Axid, Lopid, lisinopril, hydrochlorothiazide, Tenormin, and Zyloprim. ALLERGIES: NO ALLERGIES. SOCIAL HISTORY: Nondrinker, nonsmoker, non-drug abuser. FAMILY HISTORY: Noncontributory. REVIEW OF SYSTEMS: Unremarkable. There is no chest pain or shortness of breath, PND or orthopnea, nausea, vomiting, diarrhea, constipation, bright red blood per rectum, urinary symptoms, or urological symptoms. PHYSICAL EXAMINATION: Remarkable. VITAL SIGNS: Relatively normal. HEENT: Negative. CHEST: Clear. HEART: Without murmur. ABDOMEN: Soft. There is tenderness in left lower quadrant with ecchymosis in left lower quadrant. There is no guarding or rebound. No CVAT. RECTAL: Deferred. EXTREMITIES: There are chronic changes of the skin on lower extremities without edema at the moment, bilateral knee protection. LABORATORY DATA: CAT scan was reviewed showing an unremarkable hematoma on the left rectal sheath. IMPRESSION: Spontaneous rectal sheath hematoma, will observe in the ICU and conservatively manage his INR until his blood pressure is low, though I cannot find it recorded as low. Bolus of fluid is ongoing. I will follow with you. Thank you very much. Pa Sam MD
--- NOTE | 2017-10-05 01:12 | PN ---
DATE: 10/04/2017 SUBJECTIVE: This 72-year-old male was examined in CCU bed 5. This case was reviewed in detail with himself and nurse, Lauren and co-consultants, Dr. David Miller front office attendant and cloth bolt bander, Dr. Pa Sam surgeon and Dr. Fer Nicholas, Cardiology. The patient was admitted with a left abdominal wall rectus abdominal muscle hematoma. He had an elevated PT/INR and thus had his Coumadin withheld. He was given IV vitamin K as well as fresh frozen plasma replacement and initial hemoglobin of 11.7 has now stabilized at hemoglobin of 9.6 and 9.7 respectively. The patient is out of bed to chair. He is denying any fever, chills, chest pain or shortness of breath. PHYSICAL EXAMINATION: VITAL SIGNS: automotive services manager shows normal sinus rhythm, respirations 18, pulse 77 and blood pressure 106/43 with a pulse ox of 96% room air. HEENT: Head: Normocephalic, atraumatic. Eyes: No icterus. Ears: Clear. Throat: Noninjected. NECK: Supple. HEART: Irregular S1, S2, atrial fibrillation on the compounding pharmacy technician. LUNGS: Clear. ABDOMEN: Soft. Some ecchymosis on the left abdominal skin wall exam. No rebound, no guarding. No tenderness. EXTREMITIES: No edema. SKIN: Without rash. NEUROLOGICAL: Intact. PSYCHOLOGICAL: Alert and oriented x3. VASCULAR: Legs warm to touch. LABORATORY DATA: White count 12,600, hemoglobin 9.7, hematocrit 29.6, platelets 158,000, at 07:45 a.m. At 11:30 a.m., hemoglobin 9.6, hematocrit 29.2. PT/INR 1.53. Chemistry: Sodium 138, K 3.9, chloride 104, bicarb 22, BUN 38, creatinine 2.3, random blood sugar 105. Bilirubin 2.5, previously 1.3, AST 37, ALT 38, alk phos 53. Chest x-ray, no active infiltrate. Abdominal pelvic CT showed no evidence of hydronephrosis, no mass, no stones and left abdominal wall rectus muscle hematoma. IMPRESSION: A 72-year-old male now with stabilized coagulopathy in a patient on chronic Coumadin therapy for chronic atrial fibrillation with spontaneous rectus wall abdominal muscle hematoma and comorbidities of anemia, now stabilized, elevated INR, now reversed with IV vitamin K, and fresh frozen plasma with comorbidities of chronic hypertension, chronic insomnia, obstructive sleep apnea, prostate hypertrophy, obesity, hyperlipidemia, peptic ulcer disease with gastroesophageal reflux disease, degenerative arthritis and now with renal insufficiency in the setting of above in the absence of obstructive uropathy. PLAN: As discussed with the patient, nursing and co-consultants will be to maintain this patient in critical care. He will have a soft bland, heart healthy diet. He continues on 0.9 saline at 70 mL per hour, Lopid 600 mg p.o. b.i.d., Pepcid 20 mg p.o. at bedtime and I have removed his clonidine, Catapres-TTS patches from each arm. Blood and urine cultures have been received and are pending. He will have a repeat INR in the a.m. He will have hemoglobin/hematocrit every 4 hours and monitored by Dr. David Miller and a repeat CBC in the a.m. as well as a comprehensive metabolic panel repeated in the a.m. The patient is aware that should his pressure become unstable or further drop in hematocrit and hemoglobin, he will require blood cell transfusion. This was discussed in detail with Dr. Fer Nicholas from Cardiology who feels the patient is stable at this point and we can watch and withhold blood transfusion at this moment in time. However, if any further bleeding, hypotension, tachycardia or drop in hemoglobin should evolve, the patient is aware he will need blood cell transfusion. Greater than 35 minutes was spent in the critical care of this patient today, review of x-rays, labs and medications and discussion with co-consultants and the patient. All questions were answered. Mami Alexandre MD VARUN
[2017-10-05 06:13] LABS: INR 1.28 (0.93-1.08); PROTHROMBIN TIME 14.8 SECONDS (9.4-12.5)
[2017-10-05 06:16] LABS: ALBUMIN 3.8 g/dL (3.0-4.8); CALCIUM 9.4 mg/dL (8.4-10.5)
[2017-10-05 06:30] LABS: HEMOGLOBIN 9.4 g/dL (14.0-18.0); MEAN CELL VOLUME 89.3 fl (80.0-105.0); MEAN CORPUSCULAR HEMOGLOBIN 28.7 pg (25.0-35.0); MEAN CORPUSCULAR HGB CONC 32.1 g/dl (31.0-37.0); RBC 3.28 10^6/uL (3.5-6.1); WHITE BLOOD COUNT 11.9 10^3/ul (4.5-11.0)
[2017-10-05 06:31] LABS: MEAN PLATELET VOLUME 11.2 fl (7.0-11.0); RED CELL DISTRIBUTION WIDTH 15.6 % (11.5-14.5)
--- NOTE | 2017-10-05 08:58 | CP.PCM.PN ---
Subjective - Date & Time of Evaluation Date of Evaluation: 10/05/17 Time of Evaluation: 07:00 - Subjective Subjective: Surgery Progress note. Dr Sam Pt seen and examined at bedside. No acute events overnight. States that his pain is improved compared to yesterday. C/o sneezing and cold like symptoms that make pain worse. No F/C. no N/V/D. Would like to go home today Objective - Vital Signs/Intake and Output Vital Signs (last 24 hours): Temp Pulse Resp BP Pulse Ox 98.2 F 88 21 116/49 L 98 10/04/17 20:00 10/05/17 06:00 10/05/17 00:40 10/05/17 00:00 10/05/17 00:40 - Medications Medications: Current Medications Acetaminophen (Tylenol 325mg Tab) 650 mg PO Q6H PRN PRN Reason: Pain, moderate (4-7) Last Admin: 10/04/17 19:45 Dose: 650 mg Famotidine (Pepcid) 20 mg PO HS ALAN Last Admin: 10/04/17 21:04 Dose: 20 mg Gemfibrozil (Lopid) 600 mg PO BID ALAN Last Admin: 10/04/17 17:59 Dose: 600 mg Guaifenesin (Robitussin) 200 mg PO Q4H PRN PRN Reason: Cough and congestion Last Admin: 10/04/17 19:46 Dose: 200 mg Sodium Chloride (Sodium Chloride 0.9%) 1,000 mls @ 70 mls/hr IV .[id number] ALAN Last Admin: 10/04/17 14:15 Dose: 70 mls/hr Tamsulosin HCl (Flomax) 0.4 mg PO STAT [facility] Last Admin: 10/03/17 21:47 Dose: 0.4 mg Zolpidem Tartrate (Ambien) 5 mg PO HS PRN; Protocol PRN Reason: Insomnia Last Admin: 10/04/17 21:04 Dose: 5 mg - Labs Labs: 10/05/17 05:00 10/05/17 05:00 PT 14.8 SECONDS (9.4-12.5) H 10/05/17 05:00 INR 1.28 (0.93-1.08) H 10/05/17 05:00 APTT 56.1 Seconds (25.1-36.5) H 10/03/17 12:40 - Constitutional Appears: Well, Non-toxic, No Acute Distress - Head Exam Head Exam: ATRAUMATIC, NORMAL INSPECTION, NORMOCEPHALIC - Eye Exam Eye Exam: EOMI - ENT Exam ENT Exam: Mucous Membranes Moist - Respiratory Exam Respiratory Exam: NORMAL BREATHING PATTERN. absent: Accessory Muscle Use, Respiratory Distress - Cardiovascular Exam Cardiovascular Exam: absent: JVD - GI/Abdominal Exam GI & Abdominal Exam: absent: Distended, Guarding, Tenderness Additional comments: Left mid abdomen tenderness and firmness palpated. - Extremities Exam Extremities Exam: Normal Inspection. absent: Calf Tenderness - Neurological Exam Neurological Exam: Alert, Awake, Oriented x3 - Skin Skin Exam: Dry, Intact, Normal Color, Warm Assessment and Plan - Assessment and Plan (Free Text) Assessment: 72yo M with L rectus muscle hematoma - No acute surgical intervention at this time - cleared for discharge from surgical standpoint. - follow up with Dr. Sam in office in 1 week - Return to the ER with worsening symptoms Further recs as per Dr. Flaco Morris PGY1 surgery pager:[phone]
--- NOTE | 2017-10-05 09:02 | PN ---
DATE: 10/05/2017 SUBJECTIVE: The patient is seen sitting in a chair in the CCU. He continues to have discomfort in his left lower quadrant at the site of his rectus muscle hematoma. His blood pressure is improved and his cough is improved as well. CURRENT MEDICATIONS: Include Flomax, Lopid, Pepcid, Robitussin. OBJECTIVE: GENERAL: He is an overweight middle-aged man. VITAL SIGNS: His blood pressure is 116/50 with a pulse of 90 in atrial fibrillation, respirations are 16, he is afebrile. HEENT: No JVD. CHEST: Bilateral scattered rhonchi heard. HEART: PMI displaced laterally with a systolic murmur at the base. ABDOMEN: Soft with moderate left lower quadrant tenderness and hematoma noted. EXTREMITIES: No edema. DIAGNOSTIC DATA: Potassium 4.0, BUN and creatinine 41 and 2.2, INR is 1.28, last hemoglobin 9.6 and 29.1. IMPRESSION: 1. Rectus muscle hematoma due to spontaneous bleeding likely secondary to excessive coughing and elevated INR. 2. Chronic atrial fibrillation with controlled rate. 3. History of hypertension with recent transient hypotension likely secondary to vagal event. 4. Moderate aortic stenosis, asymptomatic. RECOMMENDATIONS: Coumadin therapy will be withheld for seven to ten days to allow for adequate healing of his abdominal wall hematoma. Gradual reinstitution of his antihypertensive therapy should be planned as needed, analgesic therapy for his abdominal wall pain is advised. From a cardiac standpoint, discharge home with close outpatient followup would be reasonable. We will continue to follow and make further recommendations as appropriate. Fer Nicholas MD
[2017-10-05] MEDS: guaiFENesin 200 mg/10 ml Syrup UD PO PRN (10:27)
[2017-10-05 11:37] VITALS: BP 128/77; O2SAT 99
[2017-10-05 11:41] VITALS: TEMP 99.8
[2017-10-05 12:32] VITALS: PULSE 111; RESP 16
--- NOTE | 2017-10-05 12:51 | PN ---
DATE: 10/05/2017 SUBJECTIVE: The patient is resting in bed with no complaints of shortness of breath, but does have occasional cough, but no wheezing, no chest congestion, no chest pain, no fever, chills, nausea, or vomiting. Does have a slight amount of abdominal discomfort in left lower quadrant region to palpation. No diarrhea. The patient states that his blood pressure has been good all night. PHYSICAL EXAMINATION: VITAL SIGNS: As far as physical exam, the patient's temperature is 98.2, pulse is 88, respirations are 21, and BP is 116/49. SKIN: Warm and dry. HEAD: Atraumatic, normocephalic. EYES: Reactive to light. EAR, NOSE, AND THROAT: Seemed to be within normal limits. NECK: Supple. No JVD. No thyroid enlargement. No lymph nodes. HEART: Has a regular rate and rhythm. Normal S1, S2. LUNGS: Reveal good breath sounds bilaterally. ABDOMEN: Soft. Positive bowel sounds. Some tenderness to palpation in the left lower quadrant region. GENITALIA AND RECTAL: Deferred. MUSCULOSKELETAL: No joint deformities. EXTREMITIES: Reveal trace lower extremity edema. NEUROLOGIC: Neurologically, he seems to be grossly intact. LABORATORY DATA: The patient has a white count of 11.9, hemoglobin of 9.4, hematocrit 29.3 with platelets of 132,000. His PT is 14.8, INR is 1.28. The patient's sodium is 140, potassium 4.0, chloride 106, CO2 of 21 with a BUN of 41, creatinine of 2.2, and a glucose of 108. IMPRESSION: This patient has spontaneous rectus muscle abdominal wall hematoma. The patient has coagulopathy, obstructive sleep apnea, anemia, obesity, renal insufficiency, and arthritis as well as atrial fibrillation and hypertension. PLAN: We will continue to monitor closely. The patient is getting Pepcid as well as some Ambien and Flomax. He is on IV fluids and Tylenol for pain. The patient will be treated aggressively along with the other consultants and the primary care doctor. David Miller MD
--- NOTE | 2017-10-06 02:45 | DS ---
FINAL DIAGNOSES: Left abdominal wall rectus hematoma, elevated PT/INR corrected with IV vitamin K and fresh frozen plasma, chronic atrial fibrillation, chronic hypertension, obesity, anxiety, chronic insomnia, prostate hypertrophy, acute on chronic renal insufficiency, anemia secondary to rectus muscle hematoma, chronic cholelthiasis, hyperlipidemia, peptic ulcer disease with gastroesophageal reflux disease, degenerative arthritis, stable atherosclerotic heart disease, and history of aortic stenosis, stable. DISPOSITION: Home with family providing 24-hour supervision. CONSULTANTS: Dr. Fer Nicholas from Cardiology, Dr. Pa Sam from Surgery, Dr. David Miller from Pulmonary and Intensive Care. The patient will follow up with myself this 10/08/2017 in my office. He has an office appointment Dr. Sam on Friday10/10/2017, and with Dr. Nicholas as outlined. DISCHARGE DIET: Discharge diet is 2 g sodium, heart-healthy. DISCHARGE MEDICATIONS: Pepcid 20 mg p.o. at bedtime, Lopid 600 mg p.o. b.i.d., Flomax 0.4 mg at bedtime, Ultracet 1 tablet p.o. b.i.d. p.r.n. severe pain #10 no refill, Robitussin DM 5 mL p.o. q.6 hours p.r.n. cough, ferrous gluconate 324 mg p.o. t.i.d. x1 week, and Colace 100 mg p.o. daily. SUMMARY: This 72-year-old male was admitted to the [facility] with left lower abdominal pain, which on CAT scan was found to be secondary to a spontaneous rectal wall hematoma in the setting of an elevated INR that was reversed with IV vitamin K and fresh frozen plasma because of the patient's significant finding in the setting of advanced anemia and hypotension. He was admitted to intensive care, where he received IV fluid replacement, as well as, blood products and was monitored by myself, Cardiology, Surgery, and field service specialist, Dr. David Miller. At the time of discharge, the patient had been ambulated and cleared by Physical Therapy for mobility safety. Temperature was 98.6, respirations 16, pulse 100, and blood pressure 128/77; off all IV fluids. The patient is discharged to home to the care of his family. He will be monitored in my office as an outpatient. He has been advised for any change in signs and symptoms to present directly to the [facility] ER. At the time of discharge, white count was 11,900, hemoglobin 9.4, hematocrit 29.3, and platelets 132,000. PT/INR 1.2 and 8. Sodium 140, potassium 4.0, chloride 106, bicarbonate 21, BUN 41, creatinine 2.2, random blood sugar 108, bilirubin 1.5, AST 52, ALT 48, and alkaline phosphatase 62. Abdominal pelvic CT showed asymptomatic gallstones. Unremarkable liver. Unremarkable biliary duct. Unremarkable kidneys. No hydronephrosis, no mass, no stones and a large abdominal wall rectus wall hematoma. The patient is discharged to home to the care of his family with outpatient followup as outlined, as discussed with Dr. Fer Nicholas. We will consider the reinstitution of Coumadin for chronic atrial fibrillation and stroke prevention within the next 10-14 days based on the patient's clinical progress. All of the above was explained in detail to the patient in the presence of his nurse at the bedside. Greater than 35 minutes was spent in the discharge management of this patient today. All questions were answered. All prescriptions were reviewed. All labs and x-rays were discussed. Mami Alexandre MD MTDD
--- NOTE | 2017-10-06 09:01 | PN ---
DATE: 10/05/2017 SUBJECTIVE: This 72-year-old male remains in critical care unit bed 5. He was examined at the bedside and this case was reviewed in detail with himself and his nurse Marcie Lane, registered nurse. The case was also discussed with Dr. Fer Nicholas from Cardiology as well as Dr. David Miller from Intensive Care and Pulmonology. The patient has had no further overt bleeding. He denies any hematemesis, melena or gross hematuria. His elevated INR on outpatient Coumadin was reversed with IV vitamin K and IV fresh frozen plasma. The patient has had no further ecchymosis on his abdominal wall, which remains tender to touch and is exacerbated by cough. The patient denies fever or chills and remains in atrial fibrillation rhythm on the monitor. The patient was given several challenges of IV saline yesterday with good results. PHYSICAL EXAMINATION VITAL SIGNS: At present, at bedside, temperature was afebrile 98.6, respirations 16, pulse 100 and blood pressure 128/77 with a pulse ox of 99% room air. Urine output was 1100 mL in the past 24 hours with positive fluid balance noted. HEENT: Head is normocephalic, atraumatic. Eyes no icterus. Ears clear. Throat is noninjected. NECK: Supple. HEART: Irregular S1, S2. LUNGS: Clear. ABDOMEN: Obese. EXTREMITIES: No edema. SKIN: Without rash. NEUROLOGICAL: Unchanged. PSYCHOLOGICAL: Anxious. VASCULAR: Legs warm to touch. LABORATORY DATA: White count 11,900, hemoglobin 9.4, hematocrit 29.3, platelets 132,000. Yesterday's hemoglobin 9.6, hematocrit 29.1. PT/INR 1.28. Sodium 140, K 4.0, chloride 106, bicarb 21, BUN 41, creatinine 2.2. Bilirubin 1.5, previously 2.5 with all liver function testing normal including AST 52, ALT 48, alk phos 62. Lipase normal 177. Amylase normal 94. Abdominal pelvic CT was reviewed. Gallbladder shows multiple gallstones. Liver was unremarkable with no gross lesions or any biliary duct dilatation and both kidneys showed no hydronephrosis nor solid mass. There was a large left-sided hematoma in the rectus muscle. IMPRESSION: This is a 72-year-old male with rectus muscle hematoma in the setting of spontaneous hemorrhage in the clinical setting of an elevated INR in a patient on chronic Coumadin therapy for chronic atrial fibrillation. The patient has been seen by Intensive Care Environmental Compliance Specialist, Dr. David Miller, Dr. Fer Nicholas from Cardiology and Dr. Pa Sam from Surgery. All of whom have cleared him for discharge to home since he is anxious to be discharged and declines any consideration of floor transfer or subacute rehab. I have asked his nurse to obtain a Physical Therapy evaluation for ambulation safety, transfer safety and if this is accomplished he will be discharged to home. Greater than 35 minutes was spent in the critical care of this patient today, review of x-rays discussion with the patient, nursing and co-consultants. All labs, x-rays and orders were reviewed. Mami Alexandre MD MTDKai
--- NOTE | 2017-10-06 09:24 | PN ---
DATE: 10/04/2017 SUBJECTIVE: The patient is resting in bed, awake and alert. No complaints of shortness of breath, cough, wheezing, chest congestion. No chest pain. No fevers, chills, nausea or vomiting. No diarrhea. The patient does state that his left lower quadrant abdominal pain is much better than yesterday. It is noted that he has a decrease in his blood pressure and bolus of 500 mL of normal saline was given with response. We will monitor it closely and if it decreases again, we will give a second bolus. Hemoglobin is being monitored every 4 hours at this time. PHYSICAL EXAMINATION: VITAL SIGNS: Note that the patient's temperature is 98.2, pulse is 77, respirations of 24 and BP is 106/43, O2 saturation is 96 on room air. SKIN: Warm and dry. HEAD: Atraumatic, normocephalic. EYES: Reactive to light. EAR, NOSE AND THROAT: Seem to be within normal limits. NECK: Supple. No JVD. No thyroid enlargement or lymph nodes. HEART: Has regular rate and rhythm. Normal S1, S2. LUNGS: Reveal good breath sounds bilaterally. ABDOMEN: Soft. Normal bowel sounds. Obese. There is ecchymotic area in the left lower quadrant region, slight tenderness to palpation in that area. GENITALIA AND RECTAL: Deferred. MUSCULOSKELETAL: No joint deformities. EXTREMITIES: Reveal trace lower extremity edema. NEUROLOGICALLY: He seems to be grossly intact. LABORATORY DATA: As far as his laboratories are concerned, the patient's white count is 12.6, hemoglobin is 9.7, hematocrit 29.6 with platelets of 158,000. His PT is 17.7 and INR is 1.53. The patient's sodium is 138, potassium 3.9, chloride 104, CO2 of 22 with a BUN of 38, creatinine of 2.3 and a glucose of 105. IMPRESSION: As far as my impression, this patient has a spontaneous rectus abdominal wall hematoma and has coagulopathy as well as anemia. The patient has episode of hypotension this morning which seems to respond to normal saline bolus. The patient also has renal insufficiency, obesity as well as obstructive sleep apnea. He did present as stated with anemia, but no upper or lower gastrointestinal bleeds. The patient has a history of arthritis as well as atrial fibrillation and hypertension. PLAN: As far as our plan, we will continue with CBCs q.4 hours to monitor the patient's hemoglobin. If the patient has further decrease in his blood pressure, we will repeat a second bolus of normal saline 500 mL. The patient at this time is also on a maintenance IV fluids of one half normal saline at 70 mL an hour. He is getting his Flomax as well as Pepcid. The patient is getting Tylenol for temperature as well. Patient is being seen by Cardiology as well as Surgery and we will continue to treat aggressively along with the other consultants and the primary care doctor. David Miller MD
== END 2017-10-05 14:53 | disposition home or self-care (01) | DRG 556 ==
LOC: ED 11:24 → ERH 16:13 → CCU 17:49
PROVIDERS: ADMIT Internal Medicine; ATTEND Internal Medicine
PROC: 30233K1 Transfusion of Nonautologous Frozen Plasma into Peripheral Vein, Percutaneous Approach (ICD-10-PCS; principal; 2017-10-03)
DX: M79.81 Nontraumatic hematoma of soft tissue (principal); Z68.41 Body mass index [BMI] 40.0-44.9, adult; I48.2 Chronic atrial fibrillation; R79.1 Abnormal coagulation profile; Z79.01 Long term (current) use of anticoagulants; I95.9 Hypotension, unspecified; D64.9 Anemia, unspecified; I35.0 Nonrheumatic aortic (valve) stenosis; M10.9 Gout, unspecified; I12.9 Hypertensive chronic kidney disease with stage 1 through stage 4 chronic kidney disease, or unspecified chronic kidney disease; N18.9 Chronic kidney disease, unspecified; E78.5 Hyperlipidemia, unspecified; E66.9 Obesity, unspecified; M17.0 Bilateral primary osteoarthritis of knee; K21.9 Gastro-esophageal reflux disease without esophagitis; N40.0 Benign prostatic hyperplasia without lower urinary tract symptoms; G47.33 Obstructive sleep apnea (adult) (pediatric); F51.04 Psychophysiologic insomnia; K27.9 Peptic ulcer, site unspecified, unspecified as acute or chronic, without hemorrhage or perforation; I25.10 Atherosclerotic heart disease of native coronary artery without angina pectoris; F41.9 Anxiety disorder, unspecified